=== PATIENT | female | born 1970 | race Caucasian/White ===

== ENCOUNTER 2024-06-08 10:00 | Outpatient (AMB) | payer OTHER, SELFPAY ==
--- NOTE | 2024-06-08 10:09 | A.OFFVIS_ITS ---
Vital Signs 06/08/24 10:10 Height 5 ft 1 in Weight 136 lb BMI 25.7 BP 106/59 L Blood Pressure Location Rt brachial Position Sitting Respiration 15 Pulse 92 Pulse Source Pulse Oximeter Pulse Oximetry (%) 93 Oxygen Delivery Method Room Air Intake Visit Reasons: Neck Pain Allergies codeine Allergy (Severe, Verified 06/08/24 10:11) Anaphylaxis Medication List - Last Reconciled 06/08/24 by Teri Amato LPN baclofen 10 mg PO BID bupropion HCl XL 300 mg PO DAILY estradiol (Jacquelyn) patches transdermal fluoxetine 10 mg PO DAILY hydroxychloroquine mg PO insulin glulisine U-100 (Apidra U-100 Insulin) subcut levothyroxine (Synthroid) 88 mcg PO DAILY pregabalin 150 mg PO BID HPI HPI Neck Pain: Details: 53-year-old female referred to us by Dr. Jeff Hall for consideration of treatment of cervical facet joint related pain. Patient has been having off and on neck pain radiating up towards the occipital region as well as down to the right shoulder blade with occasional radiation down the right arm that has been going on for 10 years. She is not sure what started the problem. Pain is rated as 8/10 in intensity it is described as an aching and numbing sensation with occasional pins and needles. She appears to have symptoms of radiating pain down the right arm. She is unable to sleep normally. The pain is constant. 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 She has completed 2 rounds of physical therapy 12 with 1 physical therapist in 24 rounds with another. She did get some mild relief with the 2nd round. This did not last long. She is a brittle type 1 diabetic and is not interested in any kind of cortisone injections that might trigger hyperglycemia. She has been trying home traction device with some relief. History is notable for carpal tunnel release surgery on the left side. She has not had a carpal tunnel release on the right side but does have a history of carpal tunnel and outside as per a nerve conduction study. She also has a history of lateral epicondylitis and has completed physical therapy and wears a device for lateral epicondylitis release occasionally while working. On exam today: Appears afebrile. Alert and oriented. Mood and affect appropriate. Follows and participates in conversation appropriately. Respiratory effort is unlabored. Able to transition from sit to stand unassisted. Ambulates with bilaterally normal heel strike and toe off. Able to stand and walk on toes and heels. Cervical range of motion [id number] is significantly limited and reproduces pain in the shoulders and right side. Cervical extension reproduces mild discomfort. She has tenderness all across her shoulders, right more than left. [facility] Medical History (Updated 06/08/24 @ 10:16 by Tomy Delaney MD) Fibromyalgia Type 1 diabetes Results Reviewed Results Reviewed: MRI and x-ray of cervical spine done at [facility]. Images not available. Reviewed report showing mild degenerative changes and cervical spondylosis. Assessment & Plan Assessment & Plan (1) Cervical spondylosis: Code(s): M47.812 - Spondylosis without myelopathy or radiculopathy, cervical region Category: Medical Plan 53-year-old female with mild degenerative changes in the cervical spine with spondylosis leading to axial neck pain and discomfort most remarkable in her right neck and shoulder region. She also appears to have history of right lateral epicondylitis as well as bilateral carpal tunnel syndrome, not released on the right side as yet, which appears to give an impression of radiating pain in the right arm with numbness in the index and middle fingers. However this is not secondary to a cervical radiculopathy as her MRIs not indicative of 1. Her neck and shoulder pain is primarily axial secondary to facet joint syndrome. We discussed temporary peripheral nerve stimulation of the cervical medial branches on the right side as a 1st step in management. Given her young age, she is not an optimal candidate to proceed with medial branch radiofrequency ablation just yet. We can reserve that as a backup in case PNS is not helpful. She is under treatment of a psychologist and a psychiatrist and has no underlying untreated psychological condition. She will provide us documentation to the same effect. Once we receive that documentation, we will request authorization to proceed with right C4 versus C5 medial branch nerve stimulator placement for axial neck pain secondary to cervical facet joint syndrome not r esponsive to physical therapy, cervical traction and conservative measures including oral neuropathic and muscle relaxant medications. She is not a candidate for steroid facet injections due to history of severe type 1 diabetes on continuous insulin therapy. Coding Level of Care Code New Pt Level 4 (31868) Diagnoses Cervical spondylosis M47.812
[2024-06-08 10:10] VITALS: BP 106/59; PULSE 92; RESP 15; O2SAT 93; BMI 25.7
== END 2024-06-08 10:39 | disposition home or self-care (01) ==
PROVIDERS: PCP Internal Medicine Nephrology; Referring Provider Physical Medicine & Rehabilitation; Visit Provider Internal Medicine
DX: M47.812 Spondylosis without myelopathy or radiculopathy, cervical region (principal)
CPT/HCPCS: 99204

== ENCOUNTER 2024-07-26 06:49 | Outpatient (REF) | payer OTHER, SELFPAY ==
--- NOTE | ~2024-07-26 | FL_ITS ---
EXAMINATION: FL GUIDANCE ONLY HISTORY: M47.812 - Spondylosis without myelopathy or radiculopathy, cervical region COMPARISON: None available. TECHNIQUE: Fluoroscopy time: 0.2 minutes. Cumulative Dose: 0.668 mGy. DAP: [id number] mGym2 Images: 5. FINDINGS: Images demonstrate placement of a lead in the right neck. FL/FL guidance in treatment room IMPRESSION: Fluoroscopy during procedure. Please see procedure report for additional information. Electronically signed by: Franki Barry MD 07/26/2024 01:16 PM [place]
== END 2024-07-26 06:50 | disposition home or self-care (01) ==
LOC: CF 06:49
PROVIDERS: Visit Provider Internal Medicine
DX: M47.812 Spondylosis without myelopathy or radiculopathy, cervical region (principal); M54.2 Cervicalgia; G89.29 Other chronic pain
CPT/HCPCS: 64555; C1778; J2003

== ENCOUNTER 2024-07-26 12:26 | Outpatient (AMB) | payer OTHER, SELFPAY ==
[2024-07-26 12:39] VITALS: BP 94/58; PULSE 102; O2SAT 99; BMI 25.7
--- NOTE | 2024-07-26 12:39 | A.OFFVIS_ITS ---
Vital Signs 07/26/24 12:39 Height 5 ft 1 in Weight 136 lb BMI 25.7 BP 94/58 L Blood Pressure Location Lt brachial Pulse 102 H Pulse Source Pulse Oximeter Pulse Oximetry (%) 99 Oxygen Delivery Method Room Air Intake Visit Reasons: right cervical Sprint Celery Packer Required: No Allergies codeine Allergy (Severe, Verified 07/26/24 12:40) Anaphylaxis Medication List - Last Reconciled 07/26/24 by Tanja Mejía, ATIF baclofen 10 mg PO BID bupropion HCl XL 300 mg PO DAILY estradiol (Jacquelyn) patches transdermal fluoxetine 10 mg PO DAILY hydroxychloroquine mg PO insulin glulisine U-100 (Apidra U-100 Insulin) subcut levothyroxine (Synthroid) 88 mcg PO DAILY pregabalin 150 mg PO BID HPI HPI right cervical Sprint: Details: Patient presents for scheduled procedure. Denies any recent cough, cold, infection, fever or other significant changes in medical history since last office visit. [facility] Medical History (Updated 07/26/24 @ 13:11 by Tomy Delaney MD) Fibromyalgia Type 1 diabetes Physical Exam Vital Signs: Last Vital Signs Pulse 102 H 07/26/24 12:39 BP 94/58 L 07/26/24 12:39 Pulse Ox 99 07/26/24 12:39 Oxygen Delivery Method Room Air 07/26/24 12:39 BMI result Body Mass Index 25.7 Office Procedures Details: Cervical Medial Branch Nerve Stimulation Lead Placement, SPR (Sprint) System, Right C4 ? After the risks, benefits and alternatives were discussed with the patient and informed consent was obtained, patient was placed in the prone position and padded to foster comfort. The skin overlying the cervical spine was prepped and draped in sterile fashion. Fluoroscopy was used to identify the spinous process and lamina over the C5 articular pillar. After identifying and marking the intended target along the course of the medial branch nerve, the skin around the planned entry point and the subcutaneous tissues were injected with lidocaine 1%. An introducer needle and stimulating probe were assembled, inserted and advanced along the intended course of the medial branch nerve, taking care to maintain the proper depth of insertion as the introducer was advanced under fluoroscopic guidance. The introducer needle was delivered to a location in proximity to the C5 medial branch nerve. Multiple stimulation parameters were used to deliver stimulation to the target medial branch nerve in concert with stimulating at multiple positions around the nerve. Nerve target acquisition was confirmed noting generation of paresthesias in the paravertebral regions corresponding to the level being stimulated. Various electrical parameter combinations were tested, and the lead location was adjusted (physically relocated) until the patient indicated paresthesia/muscle tension overlapping the distribution of the patient?s typical region of pain, including neck and occipital region. The most optimal paresthesia coverage corresponding to the patient's usual pain was found to be at the level of the right C4 medial branch nerve. The stimulating probe was removed from the introducer and a percutaneous lead was guided through the needle and delivered to a location in similar proximity to the nerve. Final location was verified with electrical stimulation and documented with fluoroscopy. The introducer needle was removed, and the exposed end of the percutaneous lead was attached to an external stimulator unit. Various electrical parameter combinations were again tested until the patient indicated paresthesia or muscle tension overlapping the distribution of the patient?s typical region of pain. Fluoroscopy was used to document the location of the percutaneous lead in the deployed position. After confirming that lead impedance was in the normal range, the external unit was detached, the needle was removed, and the lead was anchored at the skin. The lead was threaded into the connector block and electrical continuity and desired patient response was confirmed. The connector block was attached to the external stimulator unit. The site was covered with a sterile occlusive pressure dressing. The patient was observed for stability of vital signs and comfort. Patient was dischared in stable condition. Sprint PNS Device: Sprint PNS Device [id number] Percutaneous Peripheral Neuroelectrode Procedure: 04857 - Percutaneous Peripheral Neuroelectrode Procedure code (CPT) selection complete Office Meds lidocaine HCl 10 mg/mL (1 %) injection solution Performing Provider: Tali Mckeon APRN, SENIOR TECHNICAL PROJECT MANAGER Performing Location: [facility] – [place] [facility] Administered by: Teri Amato LPN on 07/26/24 12:49 Dose Route Admin Location Dispensed Lot Number Expiration Date [facility] [employer] 1 mL subcut 5 mL Assessment & Plan Assessment & Plan (1) Cervical spondylosis: Code(s): M47.812 - Spondylosis without myelopathy or radiculopathy, cervical region Category: Medical (2) Chronic neck pain: Code(s): M54.2 - Cervicalgia; G89.29 - Other chronic pain Category: Medical Plan Patient is status post right C4 medial branch temporary nerve stimulator placement. Patient tolerated procedure well and was discharged home in stable condition with discharge instructions. All questions were answered. We will follow-up via telephone or in clinic to assess response to therapy. A follow-up appointment was made during today's visit. Orders: Orders FL guidance in treatment room Today M47.812 - Spondylosis without myelopathy or radiculopathy, cervical region AMB Sprint PNS Today M47.812 - Spondylosis without myelopathy or radiculopathy, cervical region Coding Level of Care Code Procedure Only Diagnoses Cervical spondylosis M47.812 Chronic neck pain M54.2; G89.29 CPT Codes Sprint PNS - Sprint PNS Device: Sprint PNS Device ([id number]) Sprint PNS - SPRINT: 80808 - Percutaneous Peripheral Neuroelectrode ([id number]) Implantable Device Implantable Device Implantable Devices [employer]ty [employer] Implant Date Expiration Date Analgesic PENS system 1 [employer] 07/26/24 02/12/26
== END 2024-07-26 13:41 | disposition home or self-care (01) ==
LOC: HO.PMCPRC 12:26
PROVIDERS: PCP Internal Medicine Nephrology; Visit Provider Internal Medicine
DX: M47.812 Spondylosis without myelopathy or radiculopathy, cervical region (principal); M54.2 Cervicalgia; G89.29 Other chronic pain
CPT/HCPCS: 64555

== ENCOUNTER 2024-07-30 09:55 | Outpatient (AMB) | payer OTHER, SELFPAY ==
[2024-07-30 09:58] VITALS: BP 136/61; PULSE 84; O2SAT 98; BMI 25.7
--- NOTE | 2024-07-30 09:58 | MHC.OFFVIS ---
Vital Signs 07/30/24 09:58 Height 5 ft 1 in Weight 136 lb BMI 25.7 BP 136/61 Blood Pressure Location Rt brachial Position Sitting Pulse 84 Pulse Source Pulse Oximeter Pulse Oximetry (%) 98 Oxygen Delivery Method Room Air Intake Visit Reasons: s/p right cervical Sprint Intake Note: 3 pain today Allergies codeine Allergy (Severe, Verified 07/30/24 10:01) Anaphylaxis Medication List - Last Reconciled 07/30/24 by Celeste Lui LPN baclofen 10 mg PO BID bupropion HCl XL 300 mg PO DAILY estradiol (Jacquelyn) patches transdermal fluoxetine 10 mg PO DAILY hydroxychloroquine mg PO insulin glulisine U-100 (Apidra U-100 Insulin) subcut levothyroxine (Synthroid) 88 mcg PO DAILY pregabalin 150 mg PO BID HPI HPI s/p right cervical Sprint: Details: History of Present Illness The patient is a 53 year old female presenting with neck pain. She underwent placement of a right C4 medial branch nerve stimulator to relieve chronic neck pain and muscle spasms. Prior to intervention, she sustained significant neck pain with muscle spasms and concurrent daily headaches. These impairments necessitated seeking therapeutic help. Post-stimulator placement, the patient reports marked improvement with muscle relaxation and cessation of daily headaches. Currently managing with a setting of 45 on the device, she can titrate as needed for optimal comfort, avoiding muscle overstimulation risks. Dressing managed due to showering routines, maintaining optimal site care for the stimulator's efficacy. Pain Description - Onset and Timing: Chronic - Quality and Character: Muscle spasm resolved, relaxation of neck muscles - Primary Location: Neck - Areas of Radiation: None mentioned - Exacerbating Factors: Higher intensity on stimulator may cause discomfort - Relieving Factors: Stimulator setting at 45 offers relief - Interference with Activities: Previous interference due to muscle spasm, now improved Physical Exam - Skin- Lead insertion site is clean, dry, and intact Results Pain Management - Affect: Patient reports no longer waking with daily headaches, indicating an improvement in mood and psychological wellbeing. - Analgesia: Uses a nerve stimulator set at intensity 45 for pain management. - Adverse Effects: Possible discomfort with increased stimulator intensity beyond 45. - Activities of Daily Living: Improved functionality due to muscle relaxation, allowing for better neck mobility. - Aberrant Drug Related Behaviors: No aberrant behavior reported. [facility] Medical History (Updated 07/26/24 @ 13:11 by Tomy Delaney MD) Fibromyalgia Type 1 diabetes Physical Exam Vital Signs: Last Vital Signs Pulse 84 07/30/24 09:58 BP 136/61 07/30/24 09:58 Pulse Ox 98 07/30/24 09:58 Oxygen Delivery Method Room Air 07/30/24 09:58 BMI result Body Mass Index 25.7 Assessment & Plan Assessment & Plan (1) Chronic neck pain: Code(s): M54.2 - Cervicalgia; G89.29 - Other chronic pain Category: Medical (2) Cervical spondylosis: Code(s): M47.812 - Spondylosis without myelopathy or radiculopathy, cervical region Category: Medical Plan Plan The patient shows significant positive response to the right C4 medial branch nerve stimulator for neck pain. She should continue with the current stimulator intensity settings, adjusting as needed for comfort and efficacy, while remaining vigilant of overstimulation. Dressing changes should continue as necessary. The patient will follow up in seven weeks to reassess the right-sided lead's necessity. Patient was informed and verbally consented to the use of an ambient scribe for clinic note documentation during this visit. Discussion Notes I discussed the patient's notable response to the right C4 medial branch nerve stimulator placement, including muscle relaxation and cessation of daily headaches. The stimulator's intensity adjustments were reviewed, and I emphasized the importance of avoiding overstimulation. We concurred that no immediate intervention on the contralateral side is needed. I advised the patient to maintain dressing integrity and reassured her of a follow-up in seven weeks to evaluate the effectiveness and necessity of the current stimulator setup. The patient expressed satisfaction with the current treatment outcome. Patient Instructions - Continue with the current stimulator settings and adjust as needed for comfort. - Monitor for any signs of muscle overstimulation. - Change dressing as necessary, ensuring the insertion site remains clean, dry, and intact. - Follow-up appointment scheduled in seven weeks for reassessment. - Notify of any significant changes in pain or symptoms. Coding Level of Care Code Est Pt Level 3 (92281) Diagnoses Chronic neck pain M54.2; G89.29 Cervical spondylosis M47.812
== END 2024-07-30 10:12 | disposition home or self-care (01) ==
PROVIDERS: PCP Internal Medicine Nephrology; Visit Provider Internal Medicine
DX: M54.2 Cervicalgia (principal); G89.29 Other chronic pain; M47.812 Spondylosis without myelopathy or radiculopathy, cervical region
CPT/HCPCS: 99024

== ENCOUNTER → 2024-07-30 09:55 | Outpatient (BNVA) | payer OTHER, SELFPAY | PROVIDERS: PCP Internal Medicine Nephrology; Visit Provider Internal Medicine ==

== ENCOUNTER 2024-09-21 10:28 | Outpatient (AMB) | payer OTHER, SELFPAY ==
--- NOTE | 2024-09-21 10:37 | A.OFFVIS_ITS ---
Vital Signs 09/21/24 10:38 Height 5 ft 1 in Weight 133 lb BMI 25.1 BP 118/59 L Blood Pressure Location Lt brachial Position Sitting Respiration 16 Pulse 92 Pulse Source Pulse Oximeter Pulse Oximetry (%) 98 Oxygen Delivery Method Room Air Intake Visit Reasons: Sprint Removal Purchase Request Editor Required: No Allergies codeine Allergy (Severe, Verified 09/21/24 10:39) Anaphylaxis Medication List - Last Reconciled 09/21/24 by Teri Amato LPN baclofen 10 mg PO BID bupropion HCl XL 300 mg PO DAILY estradiol (Jacquelyn) patches transdermal fluoxetine 10 mg PO DAILY hydroxychloroquine mg PO insulin glulisine U-100 (Apidra U-100 Insulin) subcut levothyroxine (Synthroid) 88 mcg PO DAILY pregabalin 150 mg PO BID HPI HPI Sprint Removal: Details: History of Present Illness The patient is a 54-year-old female presenting with chronic neck pain and recurrent headaches. She reports only a partial 30% improvement in symptoms following removal of the sprint lead with persistent pain localized in specific areas of the neck and radiating to the jaw. She experiences headaches averaging four days per week, accompanied by sensitivity to light and sound, suggesting a migraine component. Her prior treatments included physical therapy and chiropractic interventions?none of which provided lasting relief. Her cervical MRI indicated a healthy profile, yet the patient notes specific muscle stiffness and limited neck mobility. Recent life events, including the need to care for a terminally ill family member, have interrupted her initial acupuncture regimen. Pain continues to interfere with daily activities, with a noted pain score of 6 to 7 out of 10, affecting functions such as driving. Given the spectrum of her symptoms and MRI findings, they seem consistent with a blend of chronic migraine, tension-type headache, and musculoskeletal neck pain amplified by cervical facet loading. Pain Description - Onset: Chronic with gradual progression following the removal of sprint lead - Location: Neck with radiation to the jaw - Quality: Severe pain characterized by muscle spasms and stiffness - Exacerbating Factors: Driving, inability to turn head fully - Relieving Factors: Initial PT and home remedies with limited effect - Functional Impact: Difficulty during driving due to neck mobility issues, frequent headaches correlating with photophobia and phonophobia Physical Exam - Neck- Cervical facet loading positive on the right side - Musculoskeletal- Noted stiffness and expense pain upon examination Results - MRI: Cervical spine imaging from [facility] did not reveal significant abnormalities Pain Management - Affect: Chronic pain impacting mood and psychological well-being - Analgesia: Pain score reported at 6-7/10; trial of Sumatriptan discussed - Adverse Effects: No specific medication side effects reported - Activities of Daily Living: Pain affects driving and routine activities - Aberrant Behaviors: No signs of medication misuse reported [facility] Medical History (Updated 07/26/24 @ 13:11 by Tomy Delaney MD) Fibromyalgia Type 1 diabetes Physical Exam Vital Signs: Last Vital Signs Pulse 92 09/21/24 10:38 Resp 16 09/21/24 10:38 BP 118/59 L 09/21/24 10:38 Pulse Ox 98 09/21/24 10:38 Oxygen Delivery Method Room Air 09/21/24 10:38 BMI result Body Mass Index 25.1 Assessment & Plan Assessment & Plan (1) Chronic neck pain: Code(s): M54.2 - Cervicalgia; G89.29 - Other chronic pain Category: Medical (2) Cervical spondylosis: Code(s): M47.812 - Spondylosis without myelopathy or radiculopathy, cervical region Category: Medical Plan Plan - Start acupuncture therapy to manage neck muscle spasms. - Use Sumatriptan for abortive headache treatment. - Avoid further daycare worker. - Consult with neurology for migraine evaluation. - Consider Botox or trigger point injections if initial treatments fail. Patient was informed and verbally consented to the use of an ambient scribe for clinic note documentation during this visit. Discussion Notes I engaged the patient in a detailed discussion about her chronic pain management. We explored using acupuncture as an initial approach for muscle tension, considering its non-invasive nature and previous brief experience. I also covered trigger point injections as a next step if no improvement is seen with acupuncture. I educated the patient on Sumatriptan for immediate headache relief, emphasizing its role as an abortive therapy. We reviewed the positive MRI findings and discussed avoiding repeat chiropractic visits due to past ineffectiveness. We also discussed Botox injections and neurology consultation as further options. The patient expressed understanding and agreement with the plan, noting her history of photophobia and phonophobia, both characteristic of her migraines. Patient Instructions - Start acupuncture sessions for neck muscle spasms. - For headache, use Sumatriptan as directed at onset. - Avoid chiropractic treatments; focus on acupuncture. - Consider evaluation by a neurologist if migraines persist. - Follow up in a few months to assess progress and adjust plans as needed. - Return sooner if your neck pain worsens or does not improve with treatment. Medications: New sumatriptan succinate take 1 tab at onset of headache; if no relief may repeat 1 tab after at least 2 hrs; max = 4 tabs/24 hr PO 20 tabs 0RF Coding Level of Care Code Est Pt Level 3 (59981) Diagnoses Chronic neck pain M54.2; G89.29 Cervical spondylosis M47.812
[2024-09-21 10:38] VITALS: BP 118/59; PULSE 92; RESP 16; O2SAT 98; BMI 25.1
== END 2024-09-21 10:58 | disposition home or self-care (01) ==
LOC: HO.PMC 10:29
PROVIDERS: PCP Internal Medicine Nephrology; Visit Provider Internal Medicine
DX: M54.2 Cervicalgia (principal); G89.29 Other chronic pain; M47.812 Spondylosis without myelopathy or radiculopathy, cervical region
CPT/HCPCS: 99213

== ENCOUNTER 2024-12-14 10:19 | Outpatient (AMB) | payer OTHER, SELFPAY ==
--- NOTE | 2024-12-14 10:35 | MHC.OFFVIS ---
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: No Allergies codeine Allergy (Severe, Verified 12/14/24 10:38) Anaphylaxis Medication List - Last Reconciled 12/14/24 by Teri Amato LPN baclofen 10 mg PO BID bupropion HCl XL 300 mg PO DAILY estradiol (Jacquelyn) patches transdermal fluoxetine 10 mg PO DAILY insulin glulisine U-100 (Apidra U-100 Insulin) subcut levothyroxine (Synthroid) 88 mcg PO DAILY pregabalin 150 mg PO BID sumatriptan succinate take 1 tab at onset of headache; if no relief may repeat 1 tab after at least 2 hrs; max = 4 tabs/24 hr PO HPI HPI 3 months FU: Details: History of Present Illness The patient is a 54-year-old female presenting with cervicogenic headaches and potential migraine. She was recommended to start acupuncture and try sumatriptan during her last visit. Sumatriptan was effective about 50% of the time, with occasional need for a second dose. Acupuncture was initiated but did not provide relief. The patient has not yet consulted a neurologist due to availability issues. The patient reports persistent muscle spasm, which was previously alleviated by a sprint. She experiences tightness and limited movement in the thoracic and neck region approximately 80% of the time. An MRI revealed a bone spur, which may be affecting a nerve. Pain Description - Onset: Persistent muscle spasm previously alleviated by a sprint - Quality: Tightness and limited movement in thoracic and neck region - Frequency: Approximately 80% of the time Physical Exam - Appears afebrile. - Alert and oriented. - Mood and affect appropriate. - Follows and participates in conversation appropriately. - Respiratory effort is unlabored. - Able to transition from sit to stand unassisted. - Ambulates with bilaterally normal heel strike and toe off. - Able to stand and walk on toes and heels. Results - MRI: Revealed a bone spur, potential nerve involvement Pain Management - Affect: Anxiety related to pain management and treatment options - Analgesia: Sumatriptan effective 50% of the time, occasional second dose needed - Adverse Effects: Concerns about serotonin syndrome with sumatriptan and fluoxetine - Activities of Daily Living: Limited movement in thoracic and neck region, affecting daily activities Procedure - Bilateral greater and lesser occipital nerve blocks: Informed consent obtained, patient in sitting position, 3-4 mL of bupivacaine 0.5% injected using landmark technique, no blood loss, patient tolerated procedure well. [facility] Medical History (Updated 12/14/24 @ 10:47 by Tomy Delaney MD) Fibromyalgia Type 1 diabetes Physical Exam Vital Signs: Last Vital Signs Pulse 64 12/14/24 10:38 Resp 16 12/14/24 10:38 BP 110/62 12/14/24 10:38 Pulse Ox 94 12/14/24 10:38 Oxygen Delivery Method Room Air 12/14/24 10:38 BMI result Body Mass Index 25.7 Assessment & Plan Assessment & Plan (1) Headache: Code(s): R51.9 - Headache, unspecified Category: Medical (2) Chronic neck pain: Code(s): M54.2 - Cervicalgia; G89.29 - Other chronic pain Category: Medical (3) Cervical spondylosis: Code(s): M47.812 - Spondylosis without myelopathy or radiculopathy, cervical region Category: Medical Plan Plan - Referral to neurology for further evaluation & management of migraine component. - Explore response to occipital nerve blocks for cervicogenic headaches, with follow-up as needed. - Discuss potential use of alternative migraine medications if sumatriptan is ineffective. - Monitor for serotonin syndrome due to concurrent use of sumatriptan and fluoxetine. Patient is currently weaning off fluoxetine. Patient was informed and verbally consented to the use of an ambient scribe for clinic note documentation during this visit. Discussion Notes During the visit, we discussed the management of cervicogenic headaches and potential migraine. I explained that sumatriptan has been effective about 50% of the time, and we considered the option of occipital nerve blocks to help reduce headache frequency and intensity. We also talked about the possibility of trying alternative migraine medications like Nurtec/CGRP inhibitors etc if sumatriptan remains inadequate. I advised the patient about the risk of serotonin syndrome due to the concurrent use of sumatriptan and fluoxetine, and we agreed to monitor for any symptoms. A referral to neurology was considered for further evaluation of the migraine component. Patient Instructions - Follow up with neurology for further evaluation of migraine component. - Monitor for symptoms of serotonin syndrome, such as palpitations or jitteriness. - Consider trying alternative migraine medications if sumatriptan is ineffective. - Schedule follow-up appointments as needed for occipital nerve blocks. Orders: Referrals Neurology Referral R51.9 - Headache, unspecified Coding Level of Care Code Est Pt Level 4 (83443) Diagnoses Headache R51.9 Chronic neck pain M54.2; G89.29 Cervical spondylosis M47.812
[2024-12-14 10:38] VITALS: BP 110/62; PULSE 64; RESP 16; O2SAT 94; BMI 25.7
--- OUTSIDE RECORDS SUMMARY | 2024-12-14 10:38 | XMS_ITS | Encounter Summary ---
Author Organization [facility] Address [address] [place] [address] [place] [id number] Phone Care Team Providers Care Larry Operator Name Role Phone Myla Lazaro DO Primary Care Provider [phone] LisaKarl DO Primary Care Provider [phone] Encounter Details Date Type Department Care Team (Latest Contact Info) Description 03/23/2019 Transcribe Orders Virtual Department [address] [place] [address] Cat Sommer PA-C [address] [place] [address] [email or web address] Change in bowel habits (Primary Dx); Nausea and vomiting, intractability of vomiting not specified, unspecified vomiting type; Lower abdominal pain; Upper abdominal pain Social History Tobacco Use Types Packs/Day Years Used Date Smoking Tobacco: Never Smokeless Tobacco: Never Alcohol Use Standard Drinks/Week Comments No 0 (1 standard drink = 0.6 oz pur e alcohol) Comments Unknown Sex and Gender Information Value Date Recorded Sex Assigned at Female 09/19/2017 11:40 AM EDT Legal Sex Female 4:56 PM EST Gender Identity Female 09/19/2017 11:40 AM EDT Sexual Orientation Bisexual 03/19/2023 5: 01 PM EDT documented as of this encounter Plan of Treatment Not on file documented as of this encounter Visit Diagnoses Diagnosis Change in bowel habits- Primary Other symptoms involving digestive system Nausea and vomiting, intractability of vomiting not specified, unspecified vomiting type Lower abdominal pain Abdominal pain, other specified site Upper abdominal pain documented in this encounter Additional Health Concerns Infection Onset Date Last Indicated Resolved Time CoV-Risk 03/14/2020 03/15/2020 03/28/2020 1:24 AM EDT documented as of this encounter Care Teams Larry Operator Relationship Specialty Start Date End Date Myla Lazaro DO [address] [place] [id number] PCP - General Internal Medicine 09/19/17 03/01/24 Karl Gonzalez DO [address] [place] [address] PCP - General Internal Medicine 03/02/24 documented as of this encounter Additional Source Comments The information contained in this document represents components of the legal health record. It is not the complete legal health record.[facility]
== END 2024-12-14 11:06 | disposition home or self-care (01) ==
LOC: HO.PMC 10:19
PROVIDERS: PCP Internal Medicine Nephrology; Visit Provider Internal Medicine
DX: M54.2 Cervicalgia (principal); G89.29 Other chronic pain; M47.812 Spondylosis without myelopathy or radiculopathy, cervical region; R51.9 Headache, unspecified
CPT/HCPCS: 64405; 64450; 99214

== ENCOUNTER → 2024-12-14 10:19 | Outpatient (BNVA) | payer OTHER, SELFPAY | PROVIDERS: PCP Internal Medicine Nephrology; Visit Provider Internal Medicine | DX: M54.2 Cervicalgia (principal); G89.29 Other chronic pain; M47.812 Spondylosis without myelopathy or radiculopathy, cervical region | CPT/HCPCS: 64405; 64450; J0665 ==

== ENCOUNTER 2025-02-11 13:09 | Outpatient (AMB) | payer OTHER, SELFPAY ==
[2025-02-11 13:12] VITALS: BP 106/58; PULSE 80; RESP 16; BMI 24.9
--- NOTE | 2025-02-11 13:12 | MHC.OFFVIS ---
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 The pain is primarily located in the neck with radiation to the jaw, especially noticeable in the morning. Historical interventions including a nerve stimulator and injections were mildly effective. An MRI revealed a bone spur, though it did not correspond with the severity of her symptoms. The patient's complicating medical history includes diabetes mellitus, fibromyalgia, celiac disease, and Jennifer's thyroiditis, complicating her condition's management. Previous testing showed a slightly positive Sjogren's antibody, but other inflammatory markers were negative. She has a history of hysterectomy due to cancer in 1999. There was some discussion of potential undiagnosed inflammatory arthritis as a contributor to her symptoms, but there was no definitive diagnosis. Menopause-related issues are not relevant now. The patient faces insurance-related challenges in pursuing certain treatments without a clear diagnosis. Pain Description - Onset: Chronic, with recent exacerbation - Quality: Persistent, with radiation to the jaw - Location: Primarily in the neck, extending to the jaw - Exacerbating factors: Movement, especially neck extension and rotation - Relieving factors: Not effectively identified from previous interventions - Interference: Pain interrupts daily activities, especially in the morning Physical Exam Musculoskeletal: Right-sided facet loading positive, indicating pain upon extension and rotation of the neck to the right side. Results - Imaging: MRI showing a minor disc/osteophyte spur, otherwise unremarkable Pain Management - Affect: Patient expresses frustration and concern about the lack of relief from current pain management strategies. - Analgesia: Previous nerve stimulator and injections provided limited relief from neck pain. - Activities of Daily Living: Pain interferes with daily functioning, especially in the morning. - Aberrant Drug-Related Behaviors: There were no behaviors suggestive of medication misuse or abuse noted in the discussion. [facility] Medical History (Updated 12/14/24 @ 10:47 by Tomy Delaney MD) Fibromyalgia Type 1 diabetes Physical Exam Vital Signs: Last Vital Signs Pulse 80 02/11/25 13:12 Resp 16 02/11/25 13:12 BP 106/58 L 02/11/25 13:12 BMI result Body Mass Index 24.9 Assessment & Plan Assessment & Plan (1) Cervical spondylosis: Code(s): M47.812 - Spondylosis without myelopathy or radiculopathy, cervical region Category: Medical (2) Chronic neck pain: Code(s): M54.2 - Cervicalgia; G89.29 - Other chronic pain Category: Medical Plan Plan Patient was informed and verbally consented to the use of an ambient scribe for clinic note documentation during this visit. 1. Cervical Spondylosis - Right C3, C4, C5 medial Branch diagnostic blocks is the next step, followed up with potential right C3-4-5 therapeutic medial branch blocks (MBBs) for possible underlying inflammatory spondyloarthritis. - Perform radiofrequency ablation following diagnostic tests to affirm facet joint involvement. - Continue stretching, strengthening, and chin tuck exercises. 2. Chronic Neck Pain - Consider PRP injections contingent upon confirmation from diagnostic injections. - Discuss radiofrequency ablation for potential ongoing relief. Discussion Notes During the visit, I discussed the option of radiofrequency ablation for the patient's cervical spondylosis and chronic neck pain, pending positive results from diagnostic test injections. We reviewed the possibility of PRP injections; however, financial constraints and insurance matters were highlighted as limitations. I emphasized the significance of continuing her exercises to help manage her symptoms. We also explored the patient's history of other autoimmune and endocrine conditions, as these could influence pain management. Concerns regarding underlying inflammatory processes were addressed with the aim of further evaluation through defined testing protocols if diagnostic injections are positive. Patient Instructions - Continue regular stretching, strengthening, and chin tuck exercises as advised. - Attend the scheduled diagnostic test injection appointment. - Explore financial or insurance options for PRP injections if deemed necessary post-diagnostic tests. - Contact the clinic if symptoms worsen or if there are any concerns about the treatment plan. Coding Level of Care Code Est Pt Level 4 (72949) Diagnoses Cervical spondylosis M47.812 Chronic neck pain M54.2; G89.29
--- OUTSIDE RECORDS SUMMARY | 2025-02-11 18:16 | XMS_ITS | Encounter Summary ---
Author Organization [facility] Address [address] [facility] [address] [place] [address] Phone Care Team Providers Care Human Resources Office Manager Name Role Phone Myla Lazaro Tyler DO Primary Care Provider [phone] Karl Gonzalez DO Primary Care Provider [phone] Encounter Details Date Type Department Care Team (Latest Contact Info) Description 06/18/2023 Transcribe Orders Virtual Department [address] [place] [address] Anant Loaiza MD [address] [place] [address] [email or web address] Amenorrhea, unspecified (Primary Dx) Social History Tobacco Use Types Packs/Day Years Used Date Smoking Tobacco: Former Cigarettes Q uit: 2002 Smokeless Tobacco: Never Comments:4 packs/day for ten years Alcohol Use Standard Drinks/Week Comments No 0 (1 standard drink = 0.6 oz pur e alcohol) Education Answer Date Recorded Are you interested in more education? Not on moreno e 09/26/2022 Are you concerned about learning? Not on file 09/26/2022 No 09/26/2022 No 09/26/2022 Digital Access Answer Date Recorded No 10/24/2022 No 10/24/2022 Reliable internet access at home? Not on file 10/24/2022 Device with a working camera? Not on file Comments No Sex and Gender Information Value Date Recorded Sex Assigned at Female 09/19/2017 11:40 AM EDT Legal Sex Female 4:56 PM EST Gender Identity Female 09/19/2017 11:40 AM EDT Sexual Orientation Bisexual 03/19/2023 5: 01 PM EDT documented as of this encounter Plan of Treatment Not on file documented as of this encounter Visit Diagnoses Diagnosis Amenorrhea, unspecified- Primary documented in this encounter Care Teams Human Resources Office Manager Relationship Specialty Start Date End Date Myla Lazaro DO [address] [place] [id number] PCP - General Internal Medicine 09/19/17 03/01/24 Karl Gonzalez DO [address] [place] [id number] PCP - General Internal Medicine 03/02/24 documented as of this encounter Additional Source Comments The information contained in this document represents components of the legal health record. It is not the complete legal health record.[facility]
--- OUTSIDE RECORDS SUMMARY | 2025-02-11 18:16 | XMS_ITS | Encounter Summary ---
Author Organization [facility] Address [address] [facility] [address] [place] [address] Phone Care Team Providers Care Long Lines Operator Name Role Phone IvethMyla Tyler DO Primary Care Provider [phone] Karl Gonzalez DO Primary Care Provider [phone] Encounter Details Date Type Department Care Team ([facility] Contact Info) Description 04/28/2023 Procedure Pass [facility]oscopy Admitting Dept Virtual Department [address] [place] [address] Social History Tobacco Use Types Packs/Day Years [...] documented as of this encounter Visit Diagnoses Not on filedocumented in this encounter Care Teams Long Lines Operator Relationship Specialty Start Date End Date Myla Lazaro DO [address] [place] [phone] PCP - General Internal Medicine 09/19/17 03/01/24 Karl Gonzalez DO [address] [place] [id number] PCP - General Internal Medicine 03/02/24 documented as of this encounter Additional Source Comments The information contained in this document represents components of the legal health record. It is not the complete legal health record.[facility]
--- OUTSIDE RECORDS SUMMARY | 2025-02-11 18:16 | XMS_ITS | Clinical Summary ---
Author Organization [facility] Address [address] [facility] [address] [place] [address] Phone Care Team Providers Care Sock Knitter Name Role Phone Karl Gonzalez DO Primary Care Provider [phone] Allergies Active Allergy Reactions Criticality Noted Date Comments Codeine Anaphylaxis High 09/19/2017 Medications Lactobacillus acidophilus (PROBIOTIC) 10 billion cell Cap as directed A ctive insulin glulisine U-100 (APIDRA U-100 INSULIN) 100 unit/mL injection vial Insulin pump Ac tive methocarbamoL (ROBAXIN) 500 MG tablet Take 1,000 mg by mouth. nightly 3 Active buPROPion (WELLBUTRIN XL) 300 MG ER 24 hr tablet Take 300 mg by mouth daily. Active CONTOUR NEXT Strp strips USE TO TEST BLOOD SUGARS 5 TIMES A DAY DIRECTED 3 Active Active Problems Problem Noted Date Diagnosed Date Cervical radiculitis 02/15/2024 Cervical facet syndrome 02/15/2024 Myofascial pain 02/15/2024 Right carpal tunnel syndrome 09/23/2023 De Quervain's tenosynovitis, right 09/23/2023 Adenocarcinoma of cervix 04/27/2023 023 Overview (04/27/2023): Stage 1B1 Anxiety 04/27/2023 04/27/2023 Background diabetic retinopathy 04/27/2023 04/27/2023 Celiac disease 04/27/2023 04/27/2023 Depression 04/27/2023 04/27/2023 Gastroparesis 04/27/2023 04/27/2023 Hypothyroidism 04/27/2023 04/27/2023 PTSD (post-traumatic stress disorder) 04/27/2023 04/27/2023 Type 1 diabetes mellitus 04/27/2023 023 Overview (04/27/2023): since age 12 - insulin pump Social History Tobacco Use Types Packs/Day Years [...] with a working camera? Not on file Intimate Partner Violence Answer Date R ecorded Are you denied basic needs s uch as food, clothing, or medical care? No 08/07/2023 In the past 12 months have y ou been in a relationship with a person who hurts, threatens, or tries to control you? No 08/07/2023 Are you denied basic needs s uch as food, clothing, or medical care? No 08/07/2023 In the past 12 months have y ou been in a relationship with a person who hurts, threatens, or tries to control you? No 08/07/2023 Comments No Sex and Gender Information Value Date Recorded Sex Assigned at Female 09/19/2017 11:40 AM EDT Legal Sex Female 4:56 PM EST Gender Identity Female 09/19/2017 11:40 AM EDT Sexual Orientation Bisexual 03/19/2023 5: 01 PM EDT Last Filed Vital Signs Vital Sign Reading Time Taken Comments Blood Pressure 128/69 09/23/2023 11:00 AM EDT Pulse 90 02/15/2024 9:55 AM EDT Temperature 36.3 C (97.4 F) 02/15/2024 9:55 AM EDT Respiratory Rate 18 09/23/2023 10:33 AM EDT Oxygen Saturation 9% 02/15/2024 9:55 AM EDT Inhaled Oxygen Concentration - - Weight 61.2 kg (135 lb) 03/22/2024 10:58 AM EDT Height 154.9 cm (5' 1 ) 03/22/2024 10:58 AM EDT Body Mass Index 25.51 03/22/2024 10:58 AM EDT Plan of Treatment Health Maintenance Due Date Last Done Comments Adult Td,Tdap Booster 1972 HEMOGLOBIN A1C 1972 DEPRESSION SCREENING 1984 SMOKING Hx and SMOKELESS TOBACCO SCREENING 1985 HEPATITIS C SCREENING 1990 HIV ONE-TIME SCREENING (18-65 YEARS) 1990 LIPID PANEL 1990 PNEUMOCOCCAL VACCINES (50+ years) (1 of 2 - PCV) 08/27/1991 ZOSTER VACCINES (1 of 2) 08/27/1991 PAP SMEAR 1993 MAMMOGRAM 2012 COLOGUARD 2017 FIT TEST 2017 FOBT 2017 SIGMOIDOSCOPY 2017 VIRTUAL COLONOSCOPY 2017 DIABETIC EYE EXAM 04/27/2023 URINE MICROALBUMIN/CREATININE RATIO 04/27/2023 BLOOD PRESSURE 02/15/2024 08/15/2023 INFLUENZA VACCINE (#1) 2024 COVID-19 VACCINE ( season) 2025 03/23/2022, 03/12/2021, 09/05/2020, Additional history exists COLONOSCOPY 04/28/2033 04/28/2023 COLORECTAL CANCER SCREENING 04/28/2033 HEPATITIS A VACCINES Aged Out No long er eligible based on patient's age to complete this topic HIB VACCINES Aged Out No longer eligi ble based on patient's age to complete this topic MENINGOCOCCAL VACCINES (ACWY) Aged Out No longer eligible based on patient's age to complete this topic MENINGOCOCCAL VACCINES (B) Aged Out N o longer eligible based on patient's age to complete this topic Medical Devices Not on file Procedures Procedure Name Priority Date/Time Associated Diagnosis Comments ENDOSCOPY, COLON 04/28/2023 8:19 AM EST from Last 3 Months or Most Recently Relevant to Health Maintenance Results * ENDOSCOPY, COLON (04/28/2023 8:19 AM EST) Narrative Transcriptions Cassandra Gramajo MD - 04/28/2023 8:19 AM EST [facility] Patient Name: Jihan Romero Attending MD:: CASSANDRA GRAMAJO MD, Procedure Date: 04/28/2023 8:19 AM Date of : 1970 Age: 52 Admit Type: Outpatient Gender: Female Room: [place] [address] Referring MD: Myla Lazaro MD Exam Type: Colonoscopy Indications: Screening for colorectal malignant neoplasm,Irritable bowel syndrome Medications: Monitored Anesthesia Care Procedure: Informed consent was obtained from the patientafter discussion of the indications, limitations, alternatives, benefits, and risks of the procedure. Risks specifically discussed include but are not limited to medication reactions, missed lesions, bleeding, perforation, or the need for emergent surgery. Throughout the procedure, the patient's blood pressure, pulse, end-tidal CO2, and oxygensaturations were monitored continuously. The Olympus pediatric variable colonoscopePCF-[id number] #3 was introduced through the anus and advanced tothe cecum, identified by the appendiceal orifice, ileocecal valve and palpation. The colonoscopy was somewhat difficult due to a tortuous colon. The patient tolerated the procedure fairly well. The quality of the bowel preparation was adequate to identify polyps. The ileocecal valve, appendiceal orifice, and rectum were photographed. Complications: No immediate complications. Estimated blood loss:None. Findings: The perianal and digital rectal examinations were normal. Pertinent negatives include normalsphincter tone. Retroflexion in the right colon was performed. Non-bleeding internal hemorrhoids were found during retroflexion. The hemorrhoids were small. The exam was otherwise without abnormality ondirect and retroflexion views. Impression: - Non-bleeding internal hemorrhoids. - The examination was otherwise normal on directand retroflexion views. - No specimens collected. Recommendation: - Repeat colonoscopy in 10 years for screening purposes. - Continue present medications. CASSANDRA GRAMAJO MD 04/28/2023 8:39:56 AM This report has been signed electronically. Number of Addenda: 0 Note Initiated On: 04/28/2023 8:19 AM Procedure Code(s): --- Professional --- 14248, Colonoscopy, flexible; diagnostic, including collection of specimen(s) by brushing or washing, when performed (separateprocedure) --- Technical --- 89590, Colonoscopy, flexible; diagnostic, including collection of specimen(s) by brushing or washing, when performed (separateprocedure) Diagnosis Code(s): --- Professional --- Z12.11, Encounter for screening for malignantneoplasm of colon K64.8, Other hemorrhoids K58.9, Irritable bowel syndrome without diarrhea --- Technical --- Z12.11, Encounter for screening for malignantneoplasm of colon K64.8, Other hemorrhoids K58.9, Irritable bowel syndrome without diarrhea CPT copyright 2021 [employer]. All rights reserved. The codes documented in this report are preliminary and upon armhole baster hand reviewmay be revised to meet current compliance requirements. Procedure Date: 04/28/2023 8:19:[address] [place] [address] Myla Lazaro DO GI PROCEDURE ORDERABLES Final Result from Last 3 Months or Most Recently Relevant to Health Maintenance [place] [address] [place] [address] HMO HMO HMO HMO [place] [address] [place] [address] [place] [address] [place] [address] HMO Care Teams Sock Knitter Relationship Specialty Start Date End Date Karl Gonzalez DO [address] [place] [address] PCP - General Internal Medicine 03/02/24 Additional Source Comments The information contained in this document represents components of the legal health record. It is not the complete legal health record.[facility]
--- OUTSIDE RECORDS SUMMARY | 2025-02-11 18:16 | XMS_ITS | Encounter Summary ---
Author Organization [facility] Address [address] [facility] [address] [place] [address] Phone Care Team Providers Care Wet Inspector Optical Glass Name Role Phone Myla Lazaro DO Primary Care Provider [phone] Karl Gonzalez DO Primary Care Provider [phone] Encounter Details Date Type Department Care Team ([facility] Contact Info) Description 02/15/2024 Procedure Pass [facility], [address] [address] Social History Tobacco Use Types Packs/Day Years [...] on filedocumented in this encounter Care Teams Wet Inspector Optical Glass Relationship Specialty Start Date End Date Myla Lazaro DO [address] [place] [address] PCP - General Internal Medicine 09/19/17 03/01/24 Karl Gonzalez DO [address] [place] [address] PCP - General Internal Medicine 03/02/24 documented as of this encounter Additional Source Comments The information contained in this document represents components of the legal health record. It is not the complete legal health record.[facility]
--- OUTSIDE RECORDS SUMMARY | 2025-02-11 18:16 | XMS_ITS | Encounter Summary ---
Author Organization [facility] Address [address] [place] [address] [place] [address] Phone Care Team Providers Care Set Key Driver Name Role Phone Myla Lazaro DO Primary Care Provider [phone] LisaKarl DO Primary Care Provider [phone] Encounter Details Date Type Department Care Team (Latest Contact Info) Description 03/23/2019 Transcribe Orders Virtual Department [address] [place] [address] Cat Sommer PA-C [address] [place] [address] [email or web address] Change in bowel habits (Primary Dx); [...] documented as of this encounter Care Teams Set Key Driver Relationship Specialty Start Date End Date Myla Lazaro DO [address] [place] [address] PCP - General Internal Medicine 09/19/17 03/01/24 Karl Gonzalez DO [address] [place] [address] PCP - General Internal Medicine 03/02/24 documented as of this encounter Additional Source Comments The information contained in this document represents components of the legal health record. It is not the complete legal health record.[facility]
--- OUTSIDE RECORDS SUMMARY | 2025-02-11 18:16 | XMS_ITS | Encounter Summary ---
Author Organization [facility] Address [address] [place] [address] [place] [address] Phone Care Team Providers Care Embroidery Assistant Name Role Phone UshaMyla vo Tyler DO Primary Care Provider [phone] Karl Gonzalez DO Primary Care Provider [phone] Encounter Details Date Type Department Care Team ([facility] st Contact Info) Description 03/14/2020 Transcribe Orders Virtual Department [address] [place] [address] Loren Pierce, PRERNA [address] [facility] [place] [address] Cough (Primary Dx); Nonintractable headache, unspecified chronicity pattern, unspecified headache type; Muscle ache; Fatigue, unspecified type Social History Tobacco Use Types Packs/Day Years [...] on file documented as of this encounter Results * COVID-19 PCR Order (03/15/2020 2:39 PM EDT) Specimen Source NASOPHARYNGEAL SWAB (ICICLE MACHINE OPERATOR) [facility] COVID Testing Status Sent to [facility] Symptomatic? YES [facility] Other 03/15/2020 2:39 PM EDT 03/15/2020 4:55 PM EDT us Loren Pierce ICICLE MACHINE OPERATOR BODY FLUIDS AND STOOLS ORDER JEREMY Final Result [facility] [address] [place] [address] documented in this encounter Visit Diagnoses Diagnosis Cough- Primary Nonintractable headache, unspecified chronicity pattern, unspecified headache type Muscle ache Unspecified myalgia and myositis Fatigue, unspecified type documented in this encounter Additional Health Concerns Infection Onset Date Last Indicated Resolved Time CoV-Risk 03/14/2020 03/15/2020 03/28/2020 1:24 AM EDT documented as of this encounter Care Teams Embroidery Assistant Relationship Specialty Start Date End Date Myla Lazaro DO [address] [place] [address] PCP - General Internal Medicine 09/19/17 03/01/24 Karl Gonzalez DO [address] [place] [address] PCP - General Internal Medicine 03/02/24 documented as of this encounter Additional Source Comments The information contained in this document represents components of the legal health record. It is not the complete legal health record.[facility]
--- OUTSIDE RECORDS SUMMARY | 2025-02-11 18:16 | XMS_ITS | Encounter Summary ---
Author Organization [facility] Address [address] [facility] [address] [place] [address] Phone Care Team Providers Care Animal Assisted Therapist Name Role Phone IvethMyla Tyler DO Primary Care Provider [phone] Karl Gonzalez DO Primary Care Provider [phone] Encounter Details Date Type Department Care Team ([facility] Contact Info) Description 08/18/2023 Prep for Surgery [facility] Orthopedics & Sports Medicine [address] [place] [address] Ebony English MD [address] [place] [address] Orthopedics & Sports Medicine, [facility] [place] [address] [email or web address] Social History Tobacco Use Types Packs/Day Years [...] on filedocumented in this encounter Care Teams Animal Assisted Therapist Relationship Specialty Start Date End Date Myla Lazaro DO [address] [place] [address] PCP - General Internal Medicine 09/19/17 03/01/24 Karl Gonzalez DO [address] [place] [address] PCP - General Internal Medicine 03/02/24 documented as of this encounter Additional Source Comments The information contained in this document represents components of the legal health record. It is not the complete legal health record.[facility]
--- OUTSIDE RECORDS SUMMARY | 2025-02-11 18:16 | XMS_ITS | Encounter Summary ---
Author Organization [facility] Address [address] [facility] [address] [place] [address] Phone Care Team Providers Care Seismic Plotter Name Role Phone Iveth Myla Scott DO Primary Care Provider [phone] Karl Gonzalez DO Primary Care Provider [phone] Encounter Details Date Type Department Care Team ([facility] Contact Info) Description 09/23/2023 Procedure Pass [place] Admitting Dept - Virtual Department [address] [place] [address] Social History Tobacco Use Types Packs/Day Years [...] on filedocumented in this encounter Care Teams Seismic Plotter Relationship Specialty Start Date End Date Myla Lazaro DO [address] [place] [address] PCP - General Internal Medicine 09/19/17 03/01/24 Karl Gonzalez DO [address] [place] [address] PCP - General Internal Medicine 03/02/24 documented as of this encounter Additional Source Comments The information contained in this document represents components of the legal health record. It is not the complete legal health record.[facility]
--- OUTSIDE RECORDS SUMMARY | 2025-02-11 18:16 | XMS_ITS | Encounter Summary ---
Author Organization [facility] Address [address] [place] [address] Phone Care Team Providers Care Parking Technician Name Role Phone Myla Lazaro DO Primary Care Provider [phone] Karl Gonzalez DO Primary Care Provider [phone] Encounter Details Date Type Department Care Team ([facility] Contact Info) Description 07/05/2022 Procedure Pass [facility]oscopy Admitting Dept Virtual Department [address] [place] [address] Social History Tobacco Use Types Packs/Day Years Used Date Smoking Tobacco: Former Smokeless Tobacco: Never Comments:4 packs/day ten yea rs Alcohol Use Standard Drinks/Week Comments No 0 [...] on filedocumented in this encounter Care Teams Parking Technician Relationship Specialty Start Date End Date Myla Lazaro DO [address] [place] [address] PCP - General Internal Medicine 09/19/17 03/01/24 Karl Gonzalez DO [address] [place] [address] PCP - General Internal Medicine 03/02/24 documented as of this encounter Additional Source Comments The information contained in this document represents components of the legal health record. It is not the complete legal health record.[facility]
== END 2025-02-11 14:04 | disposition home or self-care (01) ==
LOC: HO.PMC 13:10
PROVIDERS: PCP Internal Medicine Nephrology; Visit Provider Internal Medicine
DX: M47.812 Spondylosis without myelopathy or radiculopathy, cervical region (principal); M54.2 Cervicalgia; G89.29 Other chronic pain
CPT/HCPCS: 99214

== ENCOUNTER 2025-04-23 15:14 | Outpatient (AMB) | payer OTHER, SELFPAY ==
--- NOTE | 2025-04-23 15:24 | A.OFFVIS_ITS ---
Vital Signs 04/23/25 15:34 Height 5 ft 1 in Weight 134 lb BMI 25.3 BP 128/62 Blood Pressure Location Rt brachial Position Sitting Pulse 82 Pulse Source Pulse Oximeter Pulse Oximetry (%) 98 Oxygen Delivery Method Room Air Intake Visit Reasons: irrigular bowl habits Intake Note: New pt for transfer of care from [facility]. Eval IBS, chronic abd pain, and GERD. [place] + EGD done 2022. CC: C.O. uncontrolled GERD sx and hoarseness as a result. Pt denies any abd pain or any other additional sx at this time. Clinical Resource Coordinator Required: No Accompanied by: Self / Same As Patient Allergies codeine Allergy (Severe, Verified 05/22/25 13:35) Anaphylaxis HPI HPI irrigular bowl habits: Details: 54-year-old female with past medical history of diabetes, hyperthyroidism, history of cervical cancer is here today for initial consultation. Patient was sent to us for evaluation of her GERD. Patient previously was seen by [facility]. Patient had upper endoscopy done in June of 2022. Normal stomach, normal mucosa in duodenum, 1 cm hiatal hernia. In March of 2023 patient had colonoscopy which was normal and recommendation was made for patient to your for colorectal screening in 10 years. Patient reports epigastric pain and right upper quadrant pain as well. She had right upper quadrant ultrasound done in June of 2024. No evidence for cholelithiasis, cholecystitis, mildly echogenic liver, otherwise normal ultrasound. Patient reports that no matter what she eats she will have epigastric pain. Occasional nausea. Patient feels like her voice is hoarse from dealing with reflux for so long. Patient denies dyspepsia, dysphagia or odynophagia. [facility] Medical History (Updated 06/03/25 @ 08:[address] [facility]) Worsening headaches GERD (gastroesophageal reflux disease) Fibromyalgia Type 1 diabetes Surgical History (Updated 04/23/25 @ 15:40 by REAL Tolentino) History of esophagogastroduodenoscopy (EGD) H/O colonoscopy H/O: hysterectomy Social History (Updated 04/23/25 @ 15:33 by REAL Tolentino) Alcohol intake: never Patient Tobacco Use Status: Former Tobacco user Review of Systems Const Denies weight gain and Denies weight loss ENT Reports no additional complaints, Denies dysphagia and Denies odynophagia Card Reports no additional complaints Resp Reports no additional complaints GI Reports abdominal pain (Epigastric), Denies belching, Denies melena, Denies bloating, Denies change in bowel habits, Denies dysphagia, Denies excessive flatus, Denies dyspepsia, Reports heartburn, Denies diarrhea, Denies loose stools, Denies nausea, Denies odynophagia and Denies vomiting Reports no additional complaints Musc Reports no additional complaints Neuro Reports no additional complaints Psych Reports no additional complaints Endo Reports no additional complaints Physical Exam Vital Signs: Last Vital Signs Pulse 82 04/23/25 15:34 BP 128/62 04/23/25 15:34 Pulse Ox 98 04/23/25 15:34 Oxygen Delivery Method Room Air 04/23/25 15:34 BMI result Body Mass Index 25.3 Const General: healthy appearing, no acute distress and well developed Nutritional Appearance: well nourished Orientation/consciousness: patient oriented x3 Resp Effort & Inspection: normal respiratory effort, able to speak in complete sentences, no tracheal deviation and symmetric chest movement Auscultation: clear to auscultation bilaterally Cardio Rate: regular rate GI Inspection: Yes normal to inspection and No distended Palpation (GI): Soft to palpation, not firm, nontender and No hepatosplenomegaly present Auscultation: normal bowel sounds General: Yes no CVA tenderness Back/Spine/Pelvis Back: no CVA tenderness Skin General skin exam: elasticity normal, turgor normal and dry skin Neuro General: patient oriented x3 Psych Appearance: grossly normal Mental Status: mental status grossly normal Assessment & Plan Assessment & Plan (1) GERD (gastroesophageal reflux disease): Code(s): K21.9 - Gastro-esophageal reflux disease without esophagitis Category: Medical Qualifiers: Esophagitis presence: esophagitis presence not specified Qualified Code(s): K21.9 - Gastro-esophageal reflux disease without esophagitis (2) Postprandial epigastric pain: Code(s): R10.13 - Epigastric pain (3) Postprandial abdominal bloating: Code(s): R14.0 - Abdominal distension (gaseous) Plan Send patient for barium swallow. Will check transglutaminase, vitamin-D level, liver, lipase, H pylori breath test, vitamin B12 and folate. Patient will start taking pantoprazole daily. Avoid dietary triggers in late night snacking. Staying upright for minimum 3 hours after meals discussed with patient. Patient will follow-up in 3 months. She was encouraged to call our office if she will have any GI concerning symptoms. Patient is agreeable to current plan of care and verbalizes understanding of instructions. She was given the opportunity to ask questions and all questions answered. Thank you for allowing me to participate in her care Orders: Orders Transglutaminase IgA 04/23/25 R10.9 - Unspecified abdominal pain Vitamin D 25-OH (D2 and D3) 04/23/25 E55.9 - Vitamin D deficiency, unspecified Liver Panel 04/23/25 R74.01 - Elevation of levels of liver transaminase levels [place] barium swallow 04/23/25 R13.10 - Dysphagia, unspecified Pancreatic Elastase-1 04/23/25 R10.9 - Unspecified abdominal pain Amylase 04/23/25 K21.9 - Gastro-esophageal reflux disease without esophagitis Lipase 04/23/25 R10.9 - Unspecified abdominal pain Vitamin B12 and Folate 04/23/25 R19.7 - Diarrhea, unspecified H Pylori Breath Test 04/23/25 K21.9 - Gastro-esophageal reflux disease without esophagitis Medications: New pantoprazole take one tablet half an hour before breakfast 40 mg PO DAILY 30 tabs 3RF K21.9 - Gastro-esophageal reflux disease without esophagitis Coding Level of Care Code New Pt Level 4 (53775) Diagnoses Gastroesophageal reflux disease, unspecified whether esophagitis present K21.9 Esophagitis presence: esophagitis presence not specified Postprandial epigastric pain R10.13 Postprandial abdominal bloating R14.0 Time Spent (min) 50 Comment 35 minutes spent with patient and additional 15 minutes spent reviewing her records
[2025-04-23 15:34] VITALS: BP 128/62; PULSE 82; O2SAT 98; BMI 25.3
--- OUTSIDE RECORDS SUMMARY | 2025-04-23 18:53 | XMS_ITS | Encounter Summary ---
Author Organization [facility] Address [address] [place] [address] Phone Care Team Providers Care Floor Space Allocator Name Role Phone Myla Lazaro DO Primary Care Provider [phone] Karl Gonzalez DO Primary Care Provider [phone] Encounter Details Date Type Department Care Team ([facility] Contact Info) Description 07/05/2022 Procedure Pass [facility] Admitting Dept Virtual Department [address] [place] [address] Social History Tobacco Use Types Packs/Day Years [...] on filedocumented in this encounter Care Teams Floor Space Allocator Relationship Specialty Start Date End Date Myla Lazaro DO [address] [place] [address] PCP - General Internal Medicine 09/19/17 03/01/24 Karl Gonzalez DO [address] [place] [address] PCP - General Internal Medicine 03/02/24 documented as of this encounter Additional Source Comments The information contained in this document represents components of the legal health record. It is not the complete legal health record.[facility]
--- OUTSIDE RECORDS SUMMARY | 2025-04-23 18:53 | XMS_ITS | Encounter Summary ---
Author Organization [facility] Address [address] [facility] [address] [place] [address] Phone Care Team Providers Care Siebel Crm Developer Name Role Phone IvethMyla Tyler DO Primary Care Provider [phone] Karl Gonzalez DO Primary Care Provider [phone] Encounter Details Date Type Department Care Team ([facility] Contact Info) Description 04/28/2023 Procedure Pass [facility] Endoscopy Admitting Dept Virtual Department 30 [place] [address] Social History Tobacco Use Types Packs/Day Years [...] on filedocumented in this encounter Care Teams Siebel Crm Developer Relationship Specialty Start Date End Date Myla Lazaro DO [address] [place] [address] PCP - General Internal Medicine 09/19/17 03/01/24 Karl Gonzalez DO [address] [place] [address] PCP - General Internal Medicine 03/02/24 documented as of this encounter Additional Source Comments The information contained in this document represents components of the legal health record. It is not the complete legal health record.[facility]
--- OUTSIDE RECORDS SUMMARY | 2025-04-23 18:53 | XMS_ITS | Encounter Summary ---
Author Organization [facility] Address [address] [facility] [address] [place] [address] Phone Care Team Providers Care Kier Boiler Name Role Phone Myla Lazaro Tyler DO Primary Care Provider [phone] Karl Gonzalez DO Primary Care Provider [phone] Encounter Details Date Type Department Care Team (Latest Contact Info) Description 06/18/2023 Transcribe Orders Virtual Department 30 [place] [address] Anant Loaiza MD [address] [place] [address] [email or web address] Amenorrhea, unspecified (Primary Dx) Social History Tobacco [...] Primary documented in this encounter Care Teams Kier Boiler Relationship Specialty Start Date End Date Myla Lazaro DO [address] [place] [address] PCP - General Internal Medicine 09/19/17 03/01/24 Karl Gonzalez DO [address] [place] [address] PCP - General Internal Medicine 03/02/24 documented as of this encounter Additional Source Comments The information contained in this document represents components of the legal health record. It is not the complete legal health record.[facility]
--- OUTSIDE RECORDS SUMMARY | 2025-04-23 18:53 | XMS_ITS | Encounter Summary ---
Author Organization [facility] Address [address] [place] [address] [place] [address] Phone Care Team Providers Care Covering Machine Operator Helper Name Role Phone UshaMyla vo Tyler DO Primary Care Provider [phone] Karl Gonzalez DO Primary Care Provider [phone] Encounter Details Date Type Department Care Team ([facility] st Contact Info) Description 03/14/2020 Transcribe Orders Virtual Department 30 [place] [address] Loren Pierce, PRERNA [address] [facility] [place] [address] Cough (Primary Dx); Nonintractable headache, unspecified chronicity [...] 2:39 PM EDT) Specimen Source NASOPHARYNGEAL SWAB (KOHINOOR OPERATOR) [facility] COVID Testing Status Sent to [facility] Symptomatic? YES [facility] Other 03/15/2020 2:39 PM EDT 03/15/2020 4:55 PM EDT us Loren Pierce KOHINOOR OPERATOR LAB GENERAL ORDERABLES Final Result [facility] 30 [place] [address] documented in this encounter Visit Diagnoses Diagnosis Cough- Primary Nonintractable headache, unspecified chronicity pattern, unspecified headache type Muscle ache Unspecified myalgia and myositis Fatigue, unspecified type documented in this encounter Additional Health Concerns Infection Onset Date Last Indicated Resolved Time CoV-Risk 03/14/2020 03/15/2020 03/28/2020 1:24 AM EDT documented as of this encounter Care Teams Covering Machine Operator Helper Relationship Specialty Start Date End Date Myla Lazaro DO [address] [place] [address] PCP - General Internal Medicine 09/19/17 03/01/24 Karl Gonzalez DO [address] [place] [address] PCP - General Internal Medicine 03/02/24 documented as of this encounter Additional Source Comments The information contained in this document represents components of the legal health record. It is not the complete legal health record.[facility]
--- OUTSIDE RECORDS SUMMARY | 2025-04-23 18:53 | XMS_ITS | Encounter Summary ---
Author Organization [facility] Address [address] [facility] [address] [place] [address] Phone Care Team Providers Care Mail Superintendent Name Role Phone Myla Lazaro DO Primary Care Provider [phone] Karl Gonzalez DO Primary Care Provider [phone] Encounter Details Date Type Department Care Team ([facility] Contact Info) Description 09/23/2023 Procedure Pass [place] Admitting Dept - Virtual Department 30 [place] [address] Social History Tobacco Use Types Packs/Day Years [...] on filedocumented in this encounter Care Teams Mail Superintendent Relationship Specialty Start Date End Date Myla Lazaro DO [address] [place] [address] PCP - General Internal Medicine 09/19/17 03/01/24 Karl Gonzalez DO [address] [place] [address] PCP - General Internal Medicine 03/02/24 documented as of this encounter Additional Source Comments The information contained in this document represents components of the legal health record. It is not the complete legal health record.[facility]
--- OUTSIDE RECORDS SUMMARY | 2025-04-23 18:53 | XMS_ITS | Clinical Summary ---
Author Organization [facility] Address [address] [facility] [address] [place] [address] Phone Care Team Providers Care Sealer Operator Name Role Phone Karl Gonzalez DO Primary Care Provider [phone] Allergies Active Allergy Reactions Criticality Noted Date [...] FOBT 2017 SIGMOIDOSCOPY 2017 VIRTUAL COLONOSCOPY 2017 RSV VACCINE (1 - Risk 50-74 years 1-dose series) 2022 DIABETIC EYE EXAM 04/27/2023 URINE MICROALBUMIN/CREATININE RATIO [...] Gramajo MD - 04/28/2023 8:19 AM EST [facility] Patient Name: Jihan Romero Attending MD:: CASSANDRA GRAMAJO MD, Procedure Date: 04/28/2023 8:19 AM Date of : 1970 Age: 52 Admit Type: Outpatient Gender: Female Room: [place] [address] Referring MD: Myla Lazaro MD Exam Type: [...] 8:19 AM Procedure Code(s): --- Professional --- 53129, Colonoscopy, flexible; diagnostic, including collection of specimen(s) by brushing or washing, when performed (separateprocedure) --- Technical --- 41222, Colonoscopy, flexible; diagnostic, including collection of specimen(s) by brushing or washing, when performed (separateprocedure) Diagnosis Code(s): --- Professional --- Z12.11, Encounter for screening for malignantneoplasm of colon K64.8, Other hemorrhoids K58.9, Irritable bowel syndrome without diarrhea --- Technical --- Z12.11, Encounter for screening for malignantneoplasm of colon K64.8, Other hemorrhoids K58.9, Irritable bowel syndrome without diarrhea CPT copyright 2021 [employer]. All rights reserved. The codes documented in this report are preliminary and upon pega developer reviewmay be revised to meet current compliance requirements. Procedure Date: 04/28/2023 8:19:[address] [place] [address] Myla Lazaro DO GI PROCEDURE ORDERABLES Final Result from Last 3 Months or Most Recently Relevant to Health Maintenance Insurance HMO HMO HMO HMO [place] [address] [place] [address] HMO HMO Care Teams Sealer Operator Relationship Specialty Start Date End Date Karl Gonzalez DO [address] [place] [address] PCP - General Internal Medicine 03/02/24 Additional Source Comments The information contained in this document represents components of the legal health record. It is not the complete legal health record.[facility]
--- OUTSIDE RECORDS SUMMARY | 2025-04-23 18:53 | XMS_ITS | Encounter Summary ---
Author Organization [facility] Address [address] [place] [address] [place] [address] Phone Care Team Providers Care Guest Experience Manager Name Role Phone Myla Lazaro DO Primary Care Provider [phone] LisaKarl DO Primary Care Provider [phone] Encounter Details Date Type Department Care Team (Latest Contact Info) Description 03/23/2019 Transcribe Orders Virtual Department 30 [place] [address] Cat Sommer PA-C [address] [place] [address] [email or web address] Change in bowel habits (Primary Dx); [...] documented as of this encounter Care Teams Guest Experience Manager Relationship Specialty Start Date End Date Myla Lazaro DO [address] [place] [address] PCP - General Internal Medicine 09/19/17 03/01/24 Karl Gonzalez DO [address] [place] [address] PCP - General Internal Medicine 03/02/24 documented as of this encounter Additional Source Comments The information contained in this document represents components of the legal health record. It is not the complete legal health record.[facility]
--- OUTSIDE RECORDS SUMMARY | 2025-04-23 18:53 | XMS_ITS | Encounter Summary ---
Author Organization [facility] Address [address] [facility] [address] [place] [address] Phone Care Team Providers Care Shells Inspector Name Role Phone IvethMyla Tyler DO Primary Care Provider [phone] Karl Gonzalez DO Primary Care Provider [phone] Encounter Details Date Type Department Care Team ([facility] Contact Info) Description 08/18/2023 Prep for Surgery [facility] Orthopedics & Sports Medicine [address] [place] [address] Ebony English MD [address] [place] [address] Orthopedics & Sports Medicine, [facility] [place] [address] [email or web address] Social History Tobacco Use Types Packs/Day Years [...] on filedocumented in this encounter Care Teams Shells Inspector Relationship Specialty Start Date End Date Myla Lazaro DO [address] [place] [address] PCP - General Internal Medicine 09/19/17 03/01/24 Karl Gonzalez DO [address] [place] [address] PCP - General Internal Medicine 03/02/24 documented as of this encounter Additional Source Comments The information contained in this document represents components of the legal health record. It is not the complete legal health record.[facility]
--- OUTSIDE RECORDS SUMMARY | 2025-04-23 18:53 | XMS_ITS | Encounter Summary ---
Author Organization [facility] Address [address] [facility] [address] [place] [address] Phone Care Team Providers Care Marketing Programs Specialist Name Role Phone Myla Lazaro DO Primary Care Provider [phone] Karl Gonzalez DO Primary Care Provider [phone] Encounter Details Date Type Department Care Team ([facility] Contact Info) Description 02/15/2024 Procedure Pass [facility], [address] [address] Social History Tobacco Use Types Packs/Day Years [...] on filedocumented in this encounter Care Teams Marketing Programs Specialist Relationship Specialty Start Date End Date Myla Lazaro DO [address] [place] [address] PCP - General Internal Medicine 09/19/17 03/01/24 Karl Gonzalez DO [address] [place] [address] PCP - General Internal Medicine 03/02/24 documented as of this encounter Additional Source Comments The information contained in this document represents components of the legal health record. It is not the complete legal health record.[facility]
== END 2025-04-23 16:09 | disposition home or self-care (01) ==
LOC: HO.HGI 15:14
PROVIDERS: PCP Internal Medicine Nephrology; Visit Provider Nurse Practitioner Family
DX: K21.9 Gastro-esophageal reflux disease without esophagitis (principal); R10.13 Epigastric pain; R14.0 Abdominal distension (gaseous)
CPT/HCPCS: 99204

== ENCOUNTER 2025-05-01 13:02 | Outpatient (REF) | payer OTHER, SELFPAY ==
[2025-05-01 15:21] LABS: Alanine Aminotransferase 16 U/L (0-31); Albumin Level 4.7 g/dL (3.5-5.0); Alkaline Phosphatase 74 U/L (39-117); Aspartate Amino Transferase 28 U/L (5-31); Lipase 16 U/L (8-78); Total Protein 7.0 g/dL (6.5-8.0)
[2025-05-01 15:43] LABS: Folate 9.6 ng/mL (> or = 4.0); Vitamin B12 953 pg/mL (200-900)
[2025-05-01 17:44] LABS: Amylase 74 U/L (28-100)
[2025-05-08 06:24] LABS: Vitamin D 25-OH, D2 <4 ng/mL; Vitamin D 25-OH, D3 24 ng/mL; Vitamin D 25-OH, Total 24 ng/mL (30-100)
== END 2025-05-01 13:03 | disposition home or self-care (01) ==
LOC: HO.LAB 13:02
PROVIDERS: PCP Internal Medicine Nephrology; Visit Provider Nurse Practitioner Family
DX: K21.9 Gastro-esophageal reflux disease without esophagitis (principal); E55.9 Vitamin D deficiency, unspecified; R19.7 Diarrhea, unspecified; R10.9 Unspecified abdominal pain; R74.01 Elevation of levels of liver transaminase levels
CPT/HCPCS: 36415; 80076; 82150; 82306; 82607; 82746; 83013; 83690; 86364; 99211

== ENCOUNTER 2025-05-01 13:02 | Outpatient (AMB) | payer OTHER, SELFPAY ==
--- NOTE | 2025-05-01 14:11 | AM.OFFVISNUR ---
Intake Visit Reasons: H pilori Intake Note: Pt presents for H Pylori BT. Protocols reviewed with pt and confirmed to be followed. Pt advised of instructions for the test and began testing at 1330. Testing was concluded at 1345. No questions or additional concerns per pt at the end of testing. Advised pt that we will contact them with results when they are obtained. ICD 10 = K21.9 Accompanied by: Self / Same As Patient Allergies codeine Allergy (Severe, Verified 02/11/25 13:14) Anaphylaxis Coding Level of Care Code Established Pt Procedure Only Patient Type Established
--- OUTSIDE RECORDS SUMMARY | 2025-05-01 15:33 | XMS_ITS | Encounter Summary ---
Author Organization [facility] Address [address] [place] [address] [place] [address] Phone Care Team Providers Care Seniour Insight Manager Name Role Phone UshaMyla vo Tyler DO Primary Care Provider [phone] Karl Gonzalez DO Primary Care Provider [phone] Encounter Details Date Type Department Care Team ([facility] st Contact Info) Description 03/14/2020 Transcribe Orders Virtual Department 30 [place] [address] Loren Pierce, PRERNA [address] [facility] [place] [address] Cough (Primary Dx); Nonintractable headache, unspecified chronicity [...] 2:39 PM EDT) Specimen Source NASOPHARYNGEAL SWAB (MOTORCYCLE DELIVERER) [facility] COVID Testing Status Sent to [facility] Symptomatic? YES [facility] Other 03/15/2020 2:39 PM EDT 03/15/2020 4:55 PM EDT us Loren Pierce MOTORCYCLE DELIVERER LAB GENERAL ORDERABLES Final Result [facility] 30 [place] [address] documented in this encounter Visit Diagnoses Diagnosis Cough- Primary Nonintractable headache, unspecified chronicity pattern, unspecified headache type Muscle ache Unspecified myalgia and myositis Fatigue, unspecified type documented in this encounter Additional Health Concerns Infection Onset Date Last Indicated Resolved Time CoV-Risk 03/14/2020 03/15/2020 03/28/2020 1:24 AM EDT documented as of this encounter Care Teams Seniour Insight Manager Relationship Specialty Start Date End Date Myla Lazaro DO [address] [place] [address] PCP - General Internal Medicine 09/19/17 03/01/24 Karl Gonzalez DO [address] [place] [address] PCP - General Internal Medicine 03/02/24 documented as of this encounter Additional Source Comments The information contained in this document represents components of the legal health record. It is not the complete legal health record.[facility]
--- OUTSIDE RECORDS SUMMARY | 2025-05-01 15:33 | XMS_ITS | Encounter Summary ---
Author Organization [facility] Address [address] [facility] [address] [place] [address] Phone Care Team Providers Care Jammer Hooker Name Role Phone IvethMyla Tyler DO Primary Care Provider [phone] Karl Gonzalez DO Primary Care Provider [phone] Encounter Details Date Type Department Care Team ([facility] Contact Info) Description 08/18/2023 Prep for Surgery [facility] Orthopedics & Sports Medicine [address] [place] [address] Ebony English MD [address] [place] [address] Orthopedics & Sports Medicine, [facility] [place] [address] [email or web address] Social History Tobacco Use [...] on filedocumented in this encounter Care Teams Jammer Hooker Relationship Specialty Start Date End Date Myla Lazaro DO [address] [place] [address] PCP - General Internal Medicine 09/19/17 03/01/24 Karl Gonzalez DO [address] [place] [address] PCP - General Internal Medicine 03/02/24 documented as of this encounter Additional Source Comments The information contained in this document represents components of the legal health record. It is not the complete legal health record.[facility]
--- OUTSIDE RECORDS SUMMARY | 2025-05-01 15:33 | XMS_ITS | Encounter Summary ---
Author Organization [facility] Address [address] [facility] [address] [place] [address] Phone Care Team Providers Care Sheet Combining Operator Name Role Phone IvethMattyshari Scott DO Primary Care Provider [phone] Karl Gonzalez DO Primary Care Provider [phone] Encounter Details Date Type Department Care Team ([facility] Contact Info) Description 04/28/2023 Procedure Pass [facility] Endoscopy Admitting Dept Virtual Department 30 [place] [address] Social History Tobacco Use Types Packs/Day Years [...] on filedocumented in this encounter Care Teams Sheet Combining Operator Relationship Specialty Start Date End Date Myla Lazaro DO [address] [place] [address] PCP - General Internal Medicine 09/19/17 03/01/24 Karl Gonzalez DO [address] [place] [address] PCP - General Internal Medicine 03/02/24 documented as of this encounter Additional Source Comments The information contained in this document represents components of the legal health record. It is not the complete legal health record.[facility]
--- OUTSIDE RECORDS SUMMARY | 2025-05-01 15:33 | XMS_ITS | Encounter Summary ---
Author Organization [facility] Address [address] [facility] [address] [place] [address] Phone Care Team Providers Care Getterer Name Role Phone Myla Lazaro DO Primary Care Provider [phone] Karl Gonzalez DO Primary Care Provider Encounter Details Date Type Department Care Team ([facility] Contact Info) Description 09/23/2023 Procedure Pass [place] Admitting Dept - Virtual Department 30 [place] [address] Social History Tobacco Use Types Packs/Day Years [...] on filedocumented in this encounter Care Teams Getterer Relationship Specialty Start Date End Date Myla Lazaro DO [address] [place] [address] PCP - General Internal Medicine 09/19/17 03/01/24 Karl Gonzalez DO [address] [place] [address] PCP - General Internal Medicine 03/02/24 documented as of this encounter Additional Source Comments The information contained in this document represents components of the legal health record. It is not the complete legal health record.[facility]
--- OUTSIDE RECORDS SUMMARY | 2025-05-01 15:33 | XMS_ITS | Encounter Summary ---
Author Organization [facility] Address [address] [place] [address] Phone Care Team Providers Care Lead Pastor Name Role Phone Myla Lazaro DO Primary Care Provider [phone] Karl Gonzalez DO Primary Care Provider [phone] Encounter Details Date Type Department Care Team ([facility] Contact Info) Description 07/05/2022 Procedure Pass [facility] Endoscopy Admitting Dept Virtual Department 30 [place] [address] Social History Tobacco Use Types Packs/Day Years [...] on filedocumented in this encounter Care Teams Lead Pastor Relationship Specialty Start Date End Date Myla Lazaro DO [address] [place] [address] PCP - General Internal Medicine 09/19/17 03/01/24 Karl Gonzalez DO [address] [place] [address] PCP - General Internal Medicine 03/02/24 documented as of this encounter Additional Source Comments The information contained in this document represents components of the legal health record. It is not the complete legal health record.[facility]
--- OUTSIDE RECORDS SUMMARY | 2025-05-01 15:33 | XMS_ITS | Encounter Summary ---
Author Organization [facility] Address [address] [facility] [address] [place] [address] Phone Care Team Providers Care Independent Producer Name Role Phone Myla Lazaro Tyler DO Primary Care Provider [phone] Karl Gonzalez DO Primary Care Provider [phone] Encounter Details Date Type Department Care Team (Latest Contact Info) Description 06/18/2023 Transcribe Orders Virtual Department 30 [place] [address] Anant Loaiza MD [address] [place] [address] [email or web address] Amenorrhea, unspecified (Primary Dx) [...] Primary documented in this encounter Care Teams Independent Producer Relationship Specialty Start Date End Date Myla Lazaro DO [address] [place] [address] PCP - General Internal Medicine 09/19/17 03/01/24 Karl Gonzalez DO [address] [place] [address] PCP - General Internal Medicine 03/02/24 documented as of this encounter Additional Source Comments The information contained in this document represents components of the legal health record. It is not the complete legal health record.[facility]
--- OUTSIDE RECORDS SUMMARY | 2025-05-01 15:33 | XMS_ITS | Clinical Summary ---
Author Organization [facility] Address [address] [facility] [address] [place] [address] Phone Care Team Providers Care Equipment Service Engineer Name Role Phone Karl Gonzalez DO Primary Care Provider [phone] Allergies Active Allergy Reactions Criticality Noted Date [...] Gramajo MD - 04/28/2023 8:19 AM EST [facility] Patient Name: Jihan Romero Attending MD:: CASSANDRA GRAMAJO MD, Procedure Date: 04/28/2023 8:19 AM Date of : 1970 Age: 52 Admit Type: Outpatient Gender: Female Room: [place] [address] Referring MD: Myla Lazaro MD Exam Type: [...] 8:19 AM Procedure Code(s): --- Professional --- 26420, Colonoscopy, flexible; diagnostic, including collection of specimen(s) by brushing or washing, when performed (separateprocedure) --- Technical --- 50542, Colonoscopy, flexible; diagnostic, including collection of specimen(s) by brushing or washing, when performed (separateprocedure) Diagnosis Code(s): --- Professional --- Z12.11, Encounter for screening for malignantneoplasm of colon K64.8, Other hemorrhoids K58.9, Irritable bowel syndrome without diarrhea --- Technical --- Z12.11, Encounter for screening for malignantneoplasm of colon K64.8, Other hemorrhoids K58.9, Irritable bowel syndrome without diarrhea CPT copyright 2021 [employer]. All rights reserved. The codes documented in this report are preliminary and upon qa auditor reviewmay be revised to meet current compliance requirements. Procedure Date: 04/28/2023 8:19:[address] [place] [address] Myla Lazaro DO GI PROCEDURE ORDERABLES Final Result from Last 3 Months or Most Recently Relevant to Health Maintenance Insurance HMO HMO HMO HMO [place] [address] [place] [address] HMO HMO Care Teams Equipment Service Engineer Relationship Specialty Start Date End Date Karl Gonzalez DO [address] [place] [address] PCP - General Internal Medicine 03/02/24 Additional Source Comments The information contained in this document represents components of the legal health record. It is not the complete legal health record.[facility]
--- OUTSIDE RECORDS SUMMARY | 2025-05-01 15:33 | XMS_ITS | Encounter Summary ---
Author Organization [facility] Address [address] [place] [address] [place] [address] Phone Care Team Providers Care Car Worker Helper Name Role Phone Myla Lazaro DO Primary Care Provider [phone] LisaKarl DO Primary Care Provider [phone] Encounter Details Date Type Department Care Team (Latest Contact Info) Description 03/23/2019 Transcribe Orders Virtual Department 30 [place] [address] Cat Sommer PA-C [address] [place] [address] [email or web address] Change in bowel habits (Primary Dx); [...] documented as of this encounter Care Teams Car Worker Helper Relationship Specialty Start Date End Date Myla Lazaro DO [address] [place] [address] PCP - General Internal Medicine 09/19/17 03/01/24 Karl Gonzalez DO [address] [place] [address] PCP - General Internal Medicine 03/02/24 documented as of this encounter Additional Source Comments The information contained in this document represents components of the legal health record. It is not the complete legal health record.[facility]
--- OUTSIDE RECORDS SUMMARY | 2025-05-01 15:33 | XMS_ITS | Encounter Summary ---
Author Organization [facility] Address [address] [facility] [address] [place] [address] Phone Care Team Providers Care Dairy Truck Driver Name Role Phone Myla Lazaro DO Primary Care Provider [phone] Karl Gonzalez DO Primary Care Provider [phone] Encounter Details Date Type Department Care Team ([facility] Contact Info) Description 02/15/2024 Procedure Pass [facility] [place] [facility], [address] [address] Social History Tobacco Use Types Packs/Day Years [...] on filedocumented in this encounter Care Teams Dairy Truck Driver Relationship Specialty Start Date End Date Myla Lazaro DO [address] [place] [address] PCP - General Internal Medicine 09/19/17 03/01/24 Karl Gonzalez DO [address] [place] [address] PCP - General Internal Medicine 03/02/24 documented as of this encounter Additional Source Comments The information contained in this document represents components of the legal health record. It is not the complete legal health record.[facility]
== END 2025-05-01 14:16 | disposition home or self-care (01) ==
LOC: HO.HGI 13:03
PROVIDERS: PCP Internal Medicine Nephrology; Visit Provider Nurse Practitioner Family
DX: K21.9 Gastro-esophageal reflux disease without esophagitis (principal)

== ENCOUNTER 2025-05-15 14:17 | Outpatient (REF) | payer OTHER, SELFPAY ==
--- OUTSIDE RECORDS SUMMARY | 2025-05-15 19:06 | XMS_ITS | Encounter Summary ---
Author Organization [facility] Address [address] [place] [address] Phone Care Team Providers Care Collector Of Aquarium Specimens Name Role Phone IvethMyla [place] DO Primary Care Provider Karl Gonzalez DO Primary Care Provider [phone] Encounter Details Date Type Department Care Team ([facility] Contact Info) Description 08/18/2023 Prep for Surgery [facility] [address] [place] [address] Ebony English MD [address] [place] [address] Orthopedics & Sports Medicine, [place] [address] [email or web address] Social History Tobacco Use Types Packs/Day Years [...] on filedocumented in this encounter Care Teams Collector Of Aquarium Specimens Relationship Specialty Start Date End Date Myla Lazaro DO [address] [place] [address] PCP - General Internal Medicine 09/19/17 03/01/24 Karl Gonzalez DO [address] [place] [address] PCP - General Internal Medicine 03/02/24 documented as of this encounter Additional Source Comments The information contained in this document represents components of the legal health record. It is not the complete legal health record.[facility]
--- OUTSIDE RECORDS SUMMARY | 2025-05-15 19:06 | XMS_ITS | Encounter Summary ---
Author Organization [facility] Address [address] [facility] [address] [place] [address] Phone Care Team Providers Care Technicians And Trades Workers Name Role Phone Myla Lazaro DO Primary Care Provider [phone] Karl Gonzalez DO Primary Care Provider [phone] Encounter Details Date Type Department Care Team ([facility] Contact Info) Description 02/15/2024 Procedure Pass [facility], [address] [address] Social History Tobacco Use Types Packs/Day Years [...] on filedocumented in this encounter Care Teams Technicians And Trades Workers Relationship Specialty Start Date End Date Myla Lazaro DO [address] [place] [address] PCP - General Internal Medicine 09/19/17 03/01/24 Karl Gonzalez DO [address] [place] [address] PCP - General Internal Medicine 03/02/24 documented as of this encounter Additional Source Comments The information contained in this document represents components of the legal health record. It is not the complete legal health record.[facility]
--- OUTSIDE RECORDS SUMMARY | 2025-05-15 19:06 | XMS_ITS | Encounter Summary ---
Author Organization [facility] Address [address] [place] [address] [place] [address] Phone Care Team Providers Care Medical Records Receptionist Name Role Phone Myla Lazaro DO Primary Care Provider [phone] LisaKarl DO Primary Care Provider [phone] Encounter Details Date Type Department Care Team (Latest Contact Info) Description 03/23/2019 Transcribe Orders Virtual Department 30 [place] [address] Cat Sommer PA-C [address] [place] [address] [email or web address] Change in bowel habits (Primary Dx); [...] documented as of this encounter Care Teams Medical Records Receptionist Relationship Specialty Start Date End Date Myla Lazaro DO [address] [place] [address] PCP - General Internal Medicine 09/19/17 03/01/24 Karl Gonzalez DO [address] [place] [address] PCP - General Internal Medicine 03/02/24 documented as of this encounter Additional Source Comments The information contained in this document represents components of the legal health record. It is not the complete legal health record.[facility]
--- OUTSIDE RECORDS SUMMARY | 2025-05-15 19:06 | XMS_ITS | Encounter Summary ---
Author Organization [facility] Address [address] [facility] [address] [place] [address] Phone Care Team Providers Care Receiving Lead Name Role Phone Myla Lazaro DO Primary Care Provider [phone] Karl Gonzalez DO Primary Care Provider Encounter Details Date Type Department Care Team ([facility] Contact Info) Description 09/23/2023 Procedure Pass [place] Admitting Dept - Virtual Department 30 [place] [address] Social History Tobacco Use Types Packs/Day Years [...] on filedocumented in this encounter Care Teams Receiving Lead Relationship Specialty Start Date End Date Myla Lazaro DO [address] [place] [address] PCP - General Internal Medicine 09/19/17 03/01/24 Karl Gonzalez DO [address] [place] [address] PCP - General Internal Medicine 03/02/24 documented as of this encounter Additional Source Comments The information contained in this document represents components of the legal health record. It is not the complete legal health record.[facility]
--- OUTSIDE RECORDS SUMMARY | 2025-05-15 19:06 | XMS_ITS | Encounter Summary ---
Author Organization [facility] Address [address] [facility] [address] [place] [address] Phone Care Team Providers Care Pain Management Specialist Name Role Phone Myla Lazaro [place] DO Primary Care Provider [phone] Karl Gonzalez DO Primary Care Provider [phone] Encounter Details Date Type Department Care Team (Latest Contact Info) Description 06/18/2023 Transcribe Orders Virtual Department 30 [place] [address] Anant Loaiza MD [address] [place] [address] [email or web address] Amenorrhea, unspecified (Primary Dx) Social History Tobacco [...] Primary documented in this encounter Care Teams Pain Management Specialist Relationship Specialty Start Date End Date Myla Lazaro DO [address] [place] [address] PCP - General Internal Medicine 09/19/17 03/01/24 Karl Gonzalez DO [address] [place] [address] PCP - General Internal Medicine 03/02/24 documented as of this encounter Additional Source Comments The information contained in this document represents components of the legal health record. It is not the complete legal health record.[facility]
--- OUTSIDE RECORDS SUMMARY | 2025-05-15 19:06 | XMS_ITS | Encounter Summary ---
Author Organization [facility] Address [address] [place] [address] [place] [address] Phone Care Team Providers Care Director Machine Name Role Phone UshaMyla vo [place] DO Primary Care Provider [phone] Karl Gonzalez DO Primary Care Provider Encounter Details Date Type Department Care Team ([facility] st Contact Info) Description 03/14/2020 Transcribe Orders Virtual Department 30 [place] [address] Loren Pierce, PRERNA [address] [facility] [place] [address] Cough (Primary Dx); Nonintractable headache, unspecified chronicity [...] 2:39 PM EDT) Specimen Source NASOPHARYNGEAL SWAB (ROTARY DRIER) [facility] COVID Testing Status Sent to [facility] Micro Lab [facility] Symptomatic? YES [facility] Other 03/15/2020 2:39 PM EDT 03/15/2020 4:55 PM EDT us Loren Pierce ROTARY DRIER LAB GENERAL ORDERABLES Final Result [facility] [address] [place] [address] documented in this encounter Visit Diagnoses Diagnosis Cough- Primary Nonintractable headache, unspecified chronicity pattern, unspecified headache type Muscle ache Unspecified myalgia and myositis Fatigue, unspecified type documented in this encounter Additional Health Concerns Infection Onset Date Last Indicated Resolved Time CoV-Risk 03/14/2020 03/15/2020 03/28/2020 1:24 AM EDT documented as of this encounter Care Teams Director Machine Relationship Specialty Start Date End Date Myla Lazaro DO [address] [place] [address] PCP - General Internal Medicine 09/19/17 03/01/24 Karl Gonzalez DO [address] [place] [address] PCP - General Internal Medicine 03/02/24 documented as of this encounter Additional Source Comments The information contained in this document represents components of the legal health record. It is not the complete legal health record.[facility]
--- OUTSIDE RECORDS SUMMARY | 2025-05-15 19:06 | XMS_ITS | Encounter Summary ---
Author Organization [facility] Address [address] [facility] [address] [place] [address] Phone Care Team Providers Care Tree Puller Name Role Phone IvethMyla [place] DO Primary Care Provider [phone] Karl Gonzalez DO Primary Care Provider [phone] Encounter Details Date Type Department Care Team ([facility] Contact Info) Description 04/28/2023 Procedure Pass [facility] Admitting Dept Virtual Department 30 [place] [address] Social History Tobacco Use Types Packs/Day Years [...] on filedocumented in this encounter Care Teams Tree Puller Relationship Specialty Start Date End Date Myla Lazaro DO [address] [place] [address] PCP - General Internal Medicine 09/19/17 03/01/24 Karl Gonzalez DO [address] [place] [address] PCP - General Internal Medicine 03/02/24 documented as of this encounter Additional Source Comments The information contained in this document represents components of the legal health record. It is not the complete legal health record.[facility]
--- OUTSIDE RECORDS SUMMARY | 2025-05-15 19:06 | XMS_ITS | Encounter Summary ---
Author Organization [facility] Address [address] [place] [address] Phone Care Team Providers Care Drum Filler Name Role Phone Myla Lazaro DO Primary Care Provider [phone] Karl Gonzalez DO Primary Care Provider [phone] Encounter Details Date Type Department Care Team ([facility] Contact Info) Description 07/05/2022 Procedure Pass [facility] Admitting Dept Virtual Department 30 [place] [address] Social History Tobacco Use Types Packs/Day Years [...] on filedocumented in this encounter Care Teams Drum Filler Relationship Specialty Start Date End Date Myla Lazaro DO [address] [place] [address] PCP - General Internal Medicine 09/19/17 03/01/24 Karl Gonzalez DO [address] [place] [address] PCP - General Internal Medicine 03/02/24 documented as of this encounter Additional Source Comments The information contained in this document represents components of the legal health record. It is not the complete legal health record.[facility]
--- OUTSIDE RECORDS SUMMARY | 2025-05-15 19:06 | XMS_ITS | Clinical Summary ---
Author Organization [facility] Address [address] [facility] [address] [place] [address] Phone Care Team Providers Care Financial Operations Clerk Name Role Phone Karl Gonzalez DO Primary Care Provider [phone] Allergies Active Allergy Reactions Criticality Noted Date [...] Gramajo MD - 04/28/2023 8:19 AM EST [facility] Patient Name: Jihan Romero Attending MD:: CASSANDRA GRAMAJO MD, Procedure Date: 04/28/2023 8:19 AM Date of : 1970 Age: 52 Admit Type: Outpatient Gender: Female Room: [place] [address] Referring MD: Myla Lazaro MD Exam Type: [...] 8:19 AM Procedure Code(s): --- Professional --- 41246, Colonoscopy, flexible; diagnostic, including collection of specimen(s) by brushing or washing, when performed (separateprocedure) --- Technical --- 89041, Colonoscopy, flexible; diagnostic, including collection of specimen(s) by brushing or washing, when performed (separateprocedure) Diagnosis Code(s): --- Professional --- Z12.11, Encounter for screening for malignantneoplasm of colon K64.8, Other hemorrhoids K58.9, Irritable bowel syndrome without diarrhea --- Technical --- Z12.11, Encounter for screening for malignantneoplasm of colon K64.8, Other hemorrhoids K58.9, Irritable bowel syndrome without diarrhea CPT copyright 2021 [employer]. All rights reserved. The codes documented in this report are preliminary and upon manager paper reviewmay be revised to meet current compliance requirements. Procedure Date: 04/28/2023 8:19:[address] [place] [address] Myla Lazaro DO GI PROCEDURE ORDERABLES Final Result from Last 3 Months or Most Recently Relevant to Health Maintenance Insurance HMO HMO HMO H[place] [place] [address] HMO HMO Care Teams Financial Operations Clerk Relationship Specialty Start Date End Date Karl Gonzalez DO [address] [place] [address] PCP - General Internal Medicine 03/02/24 Additional Source Comments The information contained in this document represents components of the legal health record. It is not the complete legal health record.[facility]
== END 2025-05-15 14:18 | disposition home or self-care (01) ==
LOC: HO.LNP 14:17
PROVIDERS: Visit Provider Nurse Practitioner Family
DX: R10.9 Unspecified abdominal pain (principal)
CPT/HCPCS: 82656

== ENCOUNTER 2025-05-22 13:18 | Outpatient (AMB) | payer OTHER, SELFPAY ==
--- OUTSIDE RECORDS SUMMARY | 2025-05-22 13:21 | XMS_ITS | Encounter Summary ---
Author Organization [facility] Address [address] [place] [address] Phone Care Team Providers Care Training And Development Manager Name Role Phone Myla Lazaro DO Primary Care Provider [phone] Karl Gonzalez DO Primary Care Provider [phone] Encounter Details Date Type Department Care Team ([facility] Contact Info) Description 07/05/2022 Procedure Pass [facility] Admitting Dept Virtual Department 30 [place] [address] Social History Tobacco Use Types Packs/Day Years [...] on filedocumented in this encounter Care Teams Training And Development Manager Relationship Specialty Start Date End Date Myla Lazaro DO [address] [place] [address] PCP - General Internal Medicine 09/19/17 03/01/24 Karl Gonzalez DO [address] [place] [address] PCP - General Internal Medicine 03/02/24 documented as of this encounter Additional Source Comments The information contained in this document represents components of the legal health record. It is not the complete legal health record.[facility]
--- OUTSIDE RECORDS SUMMARY | 2025-05-22 13:21 | XMS_ITS | Encounter Summary ---
Author Organization [facility] Address [address] [place] [address] [place] [address] Phone Care Team Providers Care Web Press Roll Tender Name Role Phone UshaMyla vo [place] DO Primary Care Provider [phone] Karl Gonzalez DO Primary Care Provider [phone] Encounter Details Date Type Department Care Team ([facility] st Contact Info) Description 03/14/2020 Transcribe Orders Virtual Department 30 [place] [address] Loren Pierce, PRERNA [address] [place] [address] Cough (Primary Dx); Nonintractable headache, unspecified chronicity [...] 2:39 PM EDT) Specimen Source NASOPHARYNGEAL SWAB (COOK JELLY) [facility] COVID Testing Status Sent to [facility] Micro Lab [facility] Symptomatic? YES [facility] Other 03/15/2020 2:39 PM EDT 03/15/2020 4:55 PM EDT us Loren [place] COOK JELLY LAB GENERAL ORDERABLES Final Result [facility] [address] [place] [address] documented in this encounter Visit Diagnoses Diagnosis Cough- Primary Nonintractable headache, unspecified chronicity pattern, unspecified headache type Muscle ache Unspecified myalgia and myositis Fatigue, unspecified type documented in this encounter Additional Health Concerns Infection Onset Date Last Indicated Resolved Time CoV-Risk 03/14/2020 03/15/2020 03/28/2020 1:24 AM EDT documented as of this encounter Care Teams Web Press Roll Tender Relationship Specialty Start Date End Date Myla Lazaro DO [address] [place] [address] PCP - General Internal Medicine 09/19/17 03/01/24 Karl Gonzalez DO [address] [place] [address] PCP - General Internal Medicine 03/02/24 documented as of this encounter Additional Source Comments The information contained in this document represents components of the legal health record. It is not the complete legal health record.[facility]
--- OUTSIDE RECORDS SUMMARY | 2025-05-22 13:21 | XMS_ITS | Clinical Summary ---
Author Organization [facility] Address [address] [place] [address] Care Team Providers Care Communications Lead Name Role Phone Unavailable Primary Care Provider Unavailabl e Social History Tobacco Use Types Packs/Day Years Used Date Smoking Tobacco: Never Assessed Comments Unknown Sex and Gender Information Value Date Recorded Sex Assigned at Not on file Legal Sex Female 1:40 PM EST Gender Identity Not on file Sexual Orientation Not on file Plan of Treatment Not on file
--- OUTSIDE RECORDS SUMMARY | 2025-05-22 13:21 | XMS_ITS | Encounter Summary ---
Author Organization [facility] Address [address] [place] [address] [place] [address] Phone Care Team Providers Care Senior Data Integration Developer Name Role Phone Myla Lazaro DO Primary Care Provider [phone] LisaKarl DO Primary Care Provider [phone] Encounter Details Date Type Department Care Team (Latest Contact Info) Description 03/23/2019 Transcribe Orders Virtual Department 30 [place] [address] Cat Sommer PA-C [address] [place] [address] [email or web address] Change in bowel habits (Primary Dx); [...] documented as of this encounter Care Teams Senior Data Integration Developer Relationship Specialty Start Date End Date Myla Lazaro DO [address] [place] [address] PCP - General Internal Medicine 09/19/17 03/01/24 Karl Gonzalez DO [address] [place] [address] PCP - General Internal Medicine 03/02/24 documented as of this encounter Additional Source Comments The information contained in this document represents components of the legal health record. It is not the complete legal health record.[facility]
--- OUTSIDE RECORDS SUMMARY | 2025-05-22 13:21 | XMS_ITS | Encounter Summary ---
Author Organization [facility] Address [address] [facility] [address] [place] [address] Phone Care Team Providers Care Radius Corner Machine Operator Name Role Phone IvethMyla [place] DO Primary Care Provider [phone] Karl Gonzalez DO Primary Care Provider [phone] Encounter Details Date Type Department Care Team ([facility] Contact Info) Description 04/28/2023 Procedure Pass [facility] Admitting Dept Virtual Department 30 [place] [address] Social History Tobacco Use Types Packs/Day Years [...] on filedocumented in this encounter Care Teams Radius Corner Machine Operator Relationship Specialty Start Date End Date Myla Lazaro DO [address] [place] [address] PCP - General Internal Medicine 09/19/17 03/01/24 Karl Gonzalez DO [address] [place] [address] PCP - General Internal Medicine 03/02/24 documented as of this encounter Additional Source Comments The information contained in this document represents components of the legal health record. It is not the complete legal health record.[facility]
--- OUTSIDE RECORDS SUMMARY | 2025-05-22 13:21 | XMS_ITS | Encounter Summary ---
Author Organization [facility] Address [address] [facility] [address] [place] [address] Phone Care Team Providers Care Millinery Copyist Name Role Phone Myla Lazaro [place] DO Primary Care Provider [phone] Karl Gonzalez DO Primary Care Provider [phone] Encounter Details Date Type Department Care Team (Latest Contact Info) Description 06/18/2023 Transcribe Orders Virtual Department 30 [place] [address] Anant Loaiza MD [address] [place] [address] [email or web address] Amenorrhea, unspecified (Primary Dx) Social History Tobacco [...] Primary documented in this encounter Care Teams Millinery Copyist Relationship Specialty Start Date End Date Myla Lazaro DO [address] [place] [address] PCP - General Internal Medicine 09/19/17 03/01/24 Karl Gonzalez DO [address] [place] [address] PCP - General Internal Medicine 03/02/24 documented as of this encounter Additional Source Comments The information contained in this document represents components of the legal health record. It is not the complete legal health record.[facility]
--- OUTSIDE RECORDS SUMMARY | 2025-05-22 13:21 | XMS_ITS | Clinical Summary ---
Author Organization [facility] Address [address] [facility] [address] [place] [address] Phone Care Team Providers Care Rubber Stamp Maker Name Role Phone Karl Gonzalez DO Primary Care Provider Allergies Active Allergy Reactions Criticality Noted Date [...] Gramajo MD - 04/28/2023 8:19 AM EST [facility] Patient Name: Jihan Romero Attending MD:: CASSANDRA GRAMAJO MD, Procedure Date: 04/28/2023 8:19 AM Date of : 1970 Age: 52 Admit Type: Outpatient Gender: Female Room: [place] [address] Referring MD: Myla Lazaro MD Exam Type: [...] 8:19 AM Procedure Code(s): --- Professional --- 32047, Colonoscopy, flexible; diagnostic, including collection of specimen(s) by brushing or washing, when performed (separateprocedure) --- Technical --- 91441, Colonoscopy, flexible; diagnostic, including collection of specimen(s) by brushing or washing, when performed (separateprocedure) Diagnosis Code(s): --- Professional --- Z12.11, Encounter for screening for malignantneoplasm of colon K64.8, Other hemorrhoids K58.9, Irritable bowel syndrome without diarrhea --- Technical --- Z12.11, Encounter for screening for malignantneoplasm of colon K64.8, Other hemorrhoids K58.9, Irritable bowel syndrome without diarrhea CPT copyright 2021 [employer]. All rights reserved. The codes documented in this report are preliminary and upon mechanical product engineer reviewmay be revised to meet current compliance requirements. Procedure Date: 04/28/2023 8:19:[address] [place] [id number] Myla Lazaro DO GI PROCEDURE ORDERABLES Final Result from Last 3 Months or Most Recently Relevant to Health Maintenance Insurance HMO HMO HMO H[place] [address] [place] [address] HMO HMO Care Teams Rubber Stamp Maker Relationship Specialty Start Date End Date Karl Gonzalez DO [address] [place] [id number] PCP - General Internal Medicine 03/02/24 Additional Source Comments The information contained in this document represents components of the legal health record. It is not the complete legal health record.[facility]
--- OUTSIDE RECORDS SUMMARY | 2025-05-22 13:21 | XMS_ITS | Encounter Summary ---
Author Organization [facility] Address [address] [place] [phone] Phone Care Team Providers Care Forgesmith Name Role Phone IvethMyla Tyler DO Primary Care Provider [phone] Karl Gonzalez DO Primary Care Provider [phone] Encounter Details Date Type Department Care Team ([facility] Contact Info) Description 08/18/2023 Prep for Surgery [facility] [address] [place] [address] Ebony English MD [address] [place] [address] Orthopedics & Sports Medicine, [place] [address] [email or web address] Social History Tobacco Use Types Packs/Day Years [...] on filedocumented in this encounter Care Teams Forgesmith Relationship Specialty Start Date End Date Myla Lazaro DO [address] [place] [phone] PCP - General Internal Medicine 09/19/17 03/01/24 Karl Gonzalez DO [address] [place] [id number] PCP - General Internal Medicine 03/02/24 documented as of this encounter Additional Source Comments The information contained in this document represents components of the legal health record. It is not the complete legal health record.[facility]
--- OUTSIDE RECORDS SUMMARY | 2025-05-22 13:21 | XMS_ITS | Encounter Summary ---
Author Organization [facility] Address [address] [facility] [address] [place] [address] Phone Care Team Providers Care Post Acute Care Nurse Name Role Phone Myla Lazaro DO Primary Care Provider [phone] Karl Gonzalez DO Primary Care Provider [phone] Encounter Details Date Type Department Care Team ([facility] Contact Info) Description 02/15/2024 Procedure Pass [facility], [address] [address] Social History Tobacco Use Types Packs/Day Years [...] on filedocumented in this encounter Care Teams Post Acute Care Nurse Relationship Specialty Start Date End Date Myla Lazaro DO [address] [place] [address] PCP - General Internal Medicine 09/19/17 03/01/24 Karl Gonzalez DO [address] [place] [phone] PCP - General Internal Medicine 03/02/24 documented as of this encounter Additional Source Comments The information contained in this document represents components of the legal health record. It is not the complete legal health record.[facility]
--- OUTSIDE RECORDS SUMMARY | 2025-05-22 13:21 | XMS_ITS | Encounter Summary ---
Author Organization [facility] Address [address] [facility] [address] [place] [phone] Phone Care Team Providers Care Car Servicer Name Role Phone Myla Lazaro DO Primary Care Provider Karl Gonzalez DO Primary Care Provider [phone] Encounter Details Date Type Department Care Team ([facility] Contact Info) Description 09/23/2023 Procedure Pass [place] Admitting Dept - Virtual Department [address] [place] [address] Social History Tobacco Use Types Packs/Day Years [...] on filedocumented in this encounter Care Teams Car Servicer Relationship Specialty Start Date End Date Myla Lazaro DO [address] [place] [phone] PCP - General Internal Medicine 09/19/17 03/01/24 Karl Gonzalez DO [address] [place] [id number] PCP - General Internal Medicine 03/02/24 documented as of this encounter Additional Source Comments The information contained in this document represents components of the legal health record. It is not the complete legal health record.[facility]
--- NOTE | 2025-05-22 13:27 | A.OFFVIS_ITS ---
Vital Signs 05/22/25 13:28 Height 5 ft 1 in Weight 134 lb BMI 25.3 BP 100/60 Blood Pressure Location Rt brachial Position Sitting Intake Visit Reasons: INP-Headaches Payroll Secretary Required: No Accompanied by: Self / Same As Patient Allergies codeine Allergy (Severe, Verified 05/22/25 13:35) Anaphylaxis Medication List - Last Reconciled 05/22/25 by Francesca Pang, JANELL alprazolam 0.25 - 0.5 mg (1 - 2 x 0.25 mg) PO Q30M PRN 1 day MDD 4 tabs baclofen 10 mg PO DAILY bupropion HCl XL 300 mg PO DAILY coenzyme Q10 400 mg PO DAILY 90 days estradiol (Jacquelyn) patches transdermal insulin glulisine U-100 (Apidra U-100 Insulin) subcut levothyroxine (Synthroid) 88 mcg PO DAILY pregabalin 150 mg PO ONCE riboflavin (vitamin B2) 400 mg PO DAILY 90 days sumatriptan succinate 50 - 100 mg orally at onset of headache, may repeat in 2 hrs PRN; max 2 tabs per day or 4 tabs/week (may take with Ibuprofen) 30 days HPI Comments Details: Right-handed 54-yr-old female presents for new patient evaluation of headache disorder. PMH is notable for: cervical spondylosis, cervicalgia, Type I DM (dx'd at age 12) , s/p bilateral ovary sparing hysterectmy for cervical CA (w/o Chemo or Rx), celiac disease, GERD, esophagitis, IBS, abdominal surgical adhesions, Small intestinal bacterial overgrowth (SIBO), major depressive disorder, anxiety, PTSD, left elbow bursitis, s/p left carapal tunnel repeair and De Quervain's repair and OT, but it did not help hand pain. She reports she has had headaches since her early 20s without known precipitating etiology. She describes two types of headaches: a frequent headache occurring approximately 3 times per week, and a classic ?migraine? that occurs about once a year. However, on further questioning, the classic migraine presents as a more severe version of her typical left-sided headache. She also reports she has had neck pain for over a decade w/o known etiology. She states that this started after she was engaged in an argument with her partner, when she all of a sudden felt a mid-thoracic pain, which just developed increased spine, posture difficulties, TMJ dysfunction w/ nocturnal clenching (to the point of teeth loosening), fibromyalgia, generalized chronic pain (which shifts, and can be in joints, ligaments, muscles). Through [facility] pain management, she has tried the following for neck pain symptoms: * Occipital nerve block- ineffective * Peripheral nerve stimulator- helped some, but insurance denied request for permanent PNS. PMH and ROS are notable for:? 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 She is f/b rheumatology, Dr Johnson at [facility]- who is leaving the practice in May. * endorses lifelong increased flexibility * May sometimes feel a lump in her throat- thinks may be d/t GERD- seeing GI. Hesitant to re-try omeprazole d/t h/o altering GI absorption. * Blood pressure is usually low end of normal. * Physical symptoms worse after exercise, even yoga- may make her body feel stuck. * Regarding major depressive disorder, anxiety, PTSD: * A diagnosis of bipolar disorder was considered and treated for in the past, but medications had zero effect, and she believes mood symptoms are related to blood sugar fluctuations. * She is currently taking bupropion for depression and is on a waiting list for TMS * She has tried at least 20 different mental health medications since age 14 with poor effect. Pertinent denials include: * Denies diplopia * Denies chronic sinus infections * Denies HTN, HLD, palpitations, chest pain, or history of blood clots. * Denies vomiting with headaches * Denies kidney stones or other kidney issues * Denies history of concussions, strokes, or true syncope Lifestyle considerations * Typical nutrition intake: Follows a low Fod Mat, low histamine, vegetarian diet w/ low processed carbs. limits dairy. * Typical fluid intake per day: 64-128 oz of water per day w/ electrolytes * Caffeine use: 1 cups of per day, usually in the morning * Sleep routine: Usual bedtime: 11 pm and wake-up time: 8 am * Sleep difficulties: Nocturnal, but also daytime (per dentist) teeth clenching- uses a mouth guard. Mild snoring and daytime sleepiness. 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 Headache questionnaire * Types of headache disorders: 1 * Age/time of onset:late 20s * Preceding causes: denies * Family history of headache disorder: mother had migraine, and father likely had migraine * Previous work-up: * Denies any h/o head imaging * LP: denies * 08/21/2022, MRI C-spine: No spinal canal or neural foraminal stenosis. Disc bulges T2-T3 and T3-T4 without high-grade central canal or neuroforaminal stenosis. * Previous neurological care: never * Eye care provider: Dr Vanessa in [place] * Dentist: Gior[facility] Typical headache characteristics * Duration of each headache attack: days * Frequency of this attack: 3 attacks per week, and once a year, has a very severe similair attack * Time of day this headache usually occurs: Usually wakes up with this headache * Time of year or season this headache usually occurs: No specific circannual pattern * Prodrome symptoms: Denies * Aura: Denies * Pain intensity: 5-8/10 * Location, quality, characteristics: left frontal and/or left jaw, may originate from the right or left neck, but may move down into the left arm * Associated symptoms: photophobia, phonophobia, osmophobia, allodynia, nausea, sometimes worsening dizziness, cognitive difficulties, activity intolerance, * Atypical associated symptoms: Numbness and tingling into LUE, left sided mouth watering, left facial warmth. * Postdrome: residual fatigue * Aggravating factors during this headache: working, thinking, concentrating, looking a screen, bending over to pick something up * Alleviating factors during this headache: silence and sleep, stretching * Triggers that provoke this headache: rapid low blood sugar, extreme stress * Headache impact on your quality of life: has had to miss work to the point of running out of sick time by August. Crystal Clear head days: Maybe once a week Current treatment strategies * Current acute medication use/interventions: Ibuprofen or Tylenol- work about 10% of the time, but tries not to take it. * Current preventative medication use: None * Current non-pharmacological interventions: rest is adark space, stretching. Other relevant medications: - Bupropion for depression - Estradiol patch - Pregabalin - Baclofen - Mouthguard for bruxism - Digestive enzymes - B-complex vitamins (dose recently reduced from daily to every 4 days due to elevated serum vitamin-B levels) PFSH Medical History (Updated 06/02/25 @ 16:10 by JANELL Medina) Worsening headaches GERD (gastroesophageal reflux disease) Fibromyalgia Type 1 diabetes Surgical History (Updated 04/23/25 @ 15:40 by REAL Tolentino) History of esophagogastroduodenoscopy (EGD) H/O colonoscopy H/O: hysterectomy Social History (Updated 04/23/25 @ 15:33 by REAL Tolentino) Alcohol intake: never Patient Tobacco Use Status: Former Tobacco user Physical Exam Exam Exam: Alert and Oriented x's 3 No acute distress Normal respiratory effort Able to speak full sentences without dyspnea EOM:intact PEARLA Photophobic- mild Mallampati stage: 4 Scalp palpation: non-tender Cranial Nerves II-XII intact Mild forward head posture Bilateral posterior cervical muscle tightness Cervical ROM: limited throughout DTRs: 2+ throughout Gait: normal Tandem: intact Romberg: intact Finger-Nose: intact Muscle strength: Rt hand grasp 5-/5 Lt hand grasp 5-/5 RUE 5/5 LUE 5/5 RLE 5/5 LLE 5/5 Extremities: Light touch sensation intact without swelling Beighton Score Right Left Bilateral 1. Passive dorsiflexion and hyperextensi on of the fifth MCP joint beyond 90? 0 0 2. Passive apposition of the thumb to th e flexor aspect of the forearm 0 0 3. Passive hyperextension of the elbow b eyond 10? 0 0 4. Passive hyperextension of the knee be yond 10? 0 0 5. Active forward flexion of the trunk with the knees fully extended so that the palms of the hands rest flat on the floor 1 Total: 1 ( negative Beighton score ) Vital Signs: Last Vital Signs BP 100/60 05/22/25 13:28 BMI result Body Mass Index 25.3 Assessment & Plan Assessment & Plan (1) Headache: Comment: Likely chronic migraine Code(s): R51.9 - Headache, unspecified Category: Medical Qualifiers: Headache type: unspecified Headache chronicity pattern: chronic headache Intractability: not intractable Qualified Code(s): R51.9 - Headache, unspecified; G89.29 - Other chronic pain (2) Sleep difficulties: Code(s): G47.9 - Sleep disorder, unspecified Category: Medical (3) Excessive daytime sleepiness: Comment: [place] sleepiness scale 10 Code(s): G47.19 - Other hypersomnia Category: Medical (4) Chronic neck pain: Code(s): M54.2 - Cervicalgia; G89.29 - Other chronic pain Category: Medical (5) Snoring: Code(s): R06.83 - Snoring Category: Medical Plan Discussion Notes I discussed my assessment that the patient's symptoms meet the criteria for chronic migraine without aura, explaining that this is a neurovascular disorder and not just a simple headache. I also explained the concept of hypermobility, where the combination of excessive flexibility and compensatory muscle tightness can create a cycle of stiffness and pain, which appears to be a significant factor in her case. My recommended diagnostic plan includes a brain MRI with and without contrast to rule out underlying pathology, particularly given her extensive medical history and specific jaw symptoms, and an x-ray of the cervical spine with flexion and extension views to assess for instability related to her hypermobility. I also suggested an at-home sleep study to investigate sleep apnea as a potential contributor to her morning headaches. I discussed options for managing the MRI, including using an open MRI and prescribing a short course of Xanax to alleviate potential anxiety. For treatment, we discussed a three-pronged approach: lifestyle, as-needed medication, and preventative therapies. For as-needed treatment, I recommended retrying sumatriptan at a higher dose (100 mg), taken with an NSAID like Aleve Liquid Gel at the very first sign of a headache. I advised that sumatriptan can sometimes cause a transient, non-allergic sensation of tingling or pressure in the chest or head that resolves within 15-20 minutes. For prevention, I suggested starting with supplements including Vitamin B2 (pending review of her lab results), Coenzyme Q10, and magnesium glycinate. I also provided her with information on non-pharmacological options such as FL-41 tinted glasses for light sensitivity and various neuromodulation devices. Patient was informed and verbally consented to the use of an ambient scribe for clinic note documentation during this visit. Plan and patient instructions: You are advised to undergo the following: * XR C-spine with flexion and extension * you can do this at your earliest convenience, at any [facility] radiology location * Brain MRI with and without contrast * you may take alprazolam 0.25-0.5 mg 30 minutes prior to MRI, and repeat x1. if taken, you must have somebody else drive you to and from this a ppointment * Home sleep study * Future considerations: PT eval and treat with a hypermobility and/or vestibular specialist You are also advised to: * Follow-up with pain management as scheduled Headache Management Tips Combining good self-care with some helpful tools can make managing headaches much easier. Healthy Habits * Eat a balanced diet * Drink enough water throughout the day, typically at least 64 oz of fluid per day * Get regular, adequate sleep consisting of 7-9 hours of sleep per night * Stay active with routine physical activity, typically at least 30 minutes 5 days per week * Stay connected with friends and family, enjoy meaningful activities, and take care of your mood Tracking Your Headaches * Write down when headaches happen, what helps, and any side effects of new treatments * There are several options to help you, such as: * Apps such as Migraine Amos * A simple paper calendar or paper migraine tracker Non-Medication Strategies * Light sensitivity: special glasses may help (blue-light or FL-41 filters, green lenses) or green-light therapy * Avoid wearing dark sunglasses indoors * Sound sensitivity: noise-canceling earplugs can reduce bothersome noise * Neuromodulation devices: certain medical devices can be used alone or with medications to lower headache frequency and severity These strategies may not stop every attack, but over time, they can reduce headache frequency, intensity, and impact. For acute (as needed) headache treatment: It is important to take acute medications at the first sign of headache. However, please be aware that frequently using most acute medications may increase the frequency of your headache attacks, as well as make your other treatments less effective. * Trial Sumatriptan 100mg tab, 1/2 - 1 tab (50-100mg) at onset of headache, may repeat in 2 hours. Max of 2 tabs (200mg) per 24 hours. * May take sumatriptan with OTC Tylenol 650-1,000mg every 4-6 hours, Ibuprofen (liquid gels) 600mg every 6 hours, or Naproxen (liquid gels) 440mg every 12 hrs as needed. * Potential adverse effects of triptans, include but are not limited to nausea, fatigue, chest tightness/tingling (usually passes within a few minutes), medication overuse headaches. Previous acute migraine medication trials: None other than OTC analgesics Acute migraine medication contraindications: None at this time For headache prevention medication: Preventative medications should be taken routinely as prescribed for best effect, it may take several weeks for full effect to take effect. * Start Riboflavin 400mg daily in the morning * This is generally well tolerated, however some people may experience mild abdominal discomfort from use. * This will cause your urine to become bright yellow or orange, which is expected and not of any concern. * Start Co Q10 400 mg daily in the morning * Take with a healthy higher-fat food, such as avocado, peanut butter, whole- milk yogurt, or an egg * This is generally well tolerated, however possible side effects include upset stomach, diarrhea, heartburn, nausea, and trouble sleeping * Start Magnesium 400mg daily at bedtime * Magnesium comes in many subtypes, such as magnesium oxide, glycinate, citr ate, and even try magnesium combinations. Additionally magnesium comes in many forms, including tablets, capsules, powders or even liquid formulations. There is not a specific magnesium subtype or form known to be significantly more effective than another. Rather, the magnesium subtype inform that you best tolerate, is the best version for you. * Possible side effects of magnesium include, but are not limited to, GI upset, abdominal cramping, loose stools, and diarrhea Previous migraine prevention medication trials: None Migraine prevention medication contraindications: All beta-blockers due to insulin dependent diabetes, caution with Aimovig or Qulipta due to risk for constipation. We will follow-up upon review of above and with a follow-up clinic visit in 3-6 months or sooner as needed. Orders: Orders MR head/brain wo/w con 05/22/25 R51.9 - Headache, unspecified, Z85.41 - Personal history of malignant neoplasm of cervix uteri, E10.9 - Type 1 diabetes mellitus without complications, R20.2 - Paresthesia of skin XR cervical spine w flex/ext 05/22/25 M54.2 - Cervicalgia RT home sleep study 05/22/25 R06.83 - Snoring, G47.9 - Sleep disorder, unspecified, G47.19 - Other hypersomnia Medications: New alprazolam Start 30 minutes before MRI 0.25 - 0.5 mg (1 - 2 x 0.25 mg) PO Q30M PRN 4 tabs 0RF Claustrophobia 1 day MDD 4 tabs riboflavin (vitamin B2) 400 mg PO DAILY 90 tabs 3RF 90 days coenzyme Q10 Daily in a.m.. Take with higher fat food 400 mg PO DAILY 90 caps 3RF 90 days sumatriptan succinate 50 - 100 mg orally at onset of headache, may repeat in 2 hrs PRN; max 2 tabs per day or 4 tabs/week (may take with Ibuprofen) 12 tabs 6RF migraine headache 30 days Coding Level of Care Code New Pt Level 4 (42187) Diagnoses Chronic nonintractable headache, unspecified headache type R51.9; G89.29 Headache type: unspecified Headache chronicity pattern: chronic headache Intractability: not intractable Sleep difficulties G47.9 Excessive daytime sleepiness G47.19 Chronic neck pain M54.2; G89.29 Snoring R06.83
[2025-05-22 13:28] VITALS: BP 100/60; BMI 25.3
== END 2025-05-24 08:03 | disposition home or self-care (01) ==
LOC: HO.HSMS 13:19
PROVIDERS: PCP Internal Medicine Nephrology; Visit Provider Nurse Practitioner Family
DX: R51.9 Headache, unspecified (principal); G89.29 Other chronic pain; G47.9 Sleep disorder, unspecified; G47.19 Other hypersomnia; M54.2 Cervicalgia; R06.83 Snoring
CPT/HCPCS: 99204